=== PATIENT | female | born 2000 | race Caucasian/White ===

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

== ENCOUNTER 2022-01-09 18:57 | Emergency (ER) | payer MEDICAID, SELFPAY ==
[2022-01-09 18:58] VITALS: BP 128/81; PULSE 137; RESP 16; TEMP 36.6; O2SAT 98; BMI 37.4
[2022-01-09] MEDS: Metoclopramide 10 MG/2 ML Vial IV (19:31)
[2022-01-09] MEDS: Ketorolac 30 MG/ML Syringe IV (19:31)
[2022-01-09] MEDS: 0.9% Normal Saline 1,000 ML 999 ML IV (19:31)
[2022-01-09] MEDS: DiphenhydrAMINE 50 MG/ML Syringe 25 MG IV (19:31)
--- NOTE | 2022-01-09 20:16 | EDS_ITS ---
HPI History of Present Illness Chief Complaint: Headache Informant: patient Onset/Context/Timing Onset: Days (2 days) Context: Gradual Timing: Continuous Quality -Headache: Positive for Similar Prior Headaches Current Severity: Moderate Maximum Severity: Moderate Narrative Narrative: Patient present secondary to frontal headache for the past 2 days. She has tried Tylenol ibuprofen without improvement. She does report a history of similar headaches. She denies any recent head trauma. No URI symptoms or fever. [facility] Medical History Anxiety Bipolar affect, depressed Constipation during in third trimester Home Medications Flintstones Multivitamin 2 cap PO/SL DAILY 10/24/21 [History Last Taken 12/04/21] magnesium citrate 30 ml PO DAILY PRN #296 ml 12/02/21 [Rx Last Taken Unknown] docusate sodium [Colace] 100 mg PO BID 12/03/21 [History Last Taken Unknown] ondansetron 4 mg PO Q6H PRN 30 Days #30 tab 12/05/21 [Rx Last Taken Unknown] Allergy/AdvReac Type Severity Reaction Status Date / Time cephalexin monohydrate Allergy Mild Unknown Verified 12/05/21 04:28 [From Keflex] Penicillins Allergy Mild Rash Verified 12/05/21 04:28 escitalopram [From Lexapro] AdvReac Other Verified 12/05/21 04:28 hydrocodone [From Otter] AdvReac Other Verified 12/05/21 04:28 nystatin AdvReac Nausea/Vom/ Verified 12/05/21 04:28 Diarrhea Family History Father Seizures Mother Depression with anxiety Grandmother Hypertension CVA (cerebral vascular accident) Grandfather Diabetes Surgical History History of cholecystectomy History of placement of ear tubes MPFL of right knee s/p right wrist S/P tonsillectomy Social History Smoking Status: Never smoker alcohol intake: never substance use type: does not use caffeine: Yes what type of physical activity do you participate in: none seatbelt use: always ROS ROS ED Constitutional Constitutional ED: Denies chills or fever(s) Eyes Eyes: Denies change in vision ENT ENT ED: Denies sore throat Cardiovascular Cardiovascular: Denies chest pain Respiratory/Chest Respiratory/Chest: Denies cough or dyspnea Gastrointestinal Gastrointestinal: Reports nausea; Denies abdominal pain, diarrhea or vomiting Genitourinary Genitourinary ED: Denies dysuria Musculoskeletal Musculoskeletal: Denies back pain or neck pain Integumentary Denies rash Neurologic Neurologic: Reports headache(s); Denies paresthesias or weakness Allergic/Immunologic Allergic/Immunologic ED: Denies urticaria EXAM Physical Exam Narrative Exam Narrative: Patient lying in darkened room. Const Vital Signs: 01/09/22 18:58 Temperature 97.9 F Temperature Source Temporal Pulse Rate 137 H Respiratory Rate 16 Blood Pressure 128/81 H Blood Pressure Mean 96 Pulse Ox 98 Oxygen Delivery Method Room Air Positive well nourished and well developed General Appearance ED: well developed HEENT Reports normocephalic atraumatic Eyes EOMs intact bilaterally Neck supple and no meningeal signs Resp normal respiratory effort and clear to auscultation bilaterally Cardio regular rate and regular rhythm GI non-tender Auscultation: normoactive bowel sounds Palpation: soft Extremity normal to inspection Neuro oriented x3 Sensorium / Orientation: awake and alert Motor Exam: strength 5/5 throughout Psych mental status grossly normal Skin Lesions: no lesions Rashes: no rashes MDM MDM MDM Narrative Medical decision making narrative: Patient given Toradol, Reglan, Benadryl, IV fluids. Treatment and Re-Evaluation Comments:: On repeat evaluation patient sleeping comfortably. She easily awakens. Headache is significantly improved and will be discharged home with family. Discharge Plan Triage Chief Complaint: Headache ED Provider: Mi Bernard Dx/Rx/DC Orders Clinical Impression: Migraine Instructions: ED, Migraine (Classical) Prescriptions: No Action Flintstones Multivitamin 2 cap PO/SL DAILY RF: 0 magnesium citrate Solution 30 ml PO DAILY PRN (Reason: constipation) Qty: 296 RF: 1 docusate sodium [Colace] 100 mg capsule 100 mg PO BID RF: 0 ondansetron 4 mg tablet,disintegrating 4 mg PO Q6H PRN (Reason: nausea and vomiting) 30 Days Qty: 30 RF: 3 Primary Care Provider: Bernie Wadsworth Referrals: Bernie Wadsworth MD [Primary Care Provider] - As Needed Disposition Disposition: Home, Self Care
== END 2022-01-09 20:28 | disposition home or self-care (01) ==
PROVIDERS: Emergency Provider Emergency Medicine; PCP Pediatrics; Visit Provider Emergency Medicine
DX: G43.909 Migraine, unspecified, not intractable, without status migrainosus (principal); F31.9 Bipolar disorder, unspecified; F41.9 Anxiety disorder, unspecified
CPT/HCPCS: 99282; J7030; A4216

== ENCOUNTER 2022-04-13 23:58 | Emergency (ER) | payer MEDICAID, SELFPAY ==
[2022-04-13 23:59] VITALS: BP 130/78; PULSE 134; RESP 15; TEMP 37.2; O2SAT 97; BMI 37.4
--- NOTE | 2022-04-14 00:20 | EDS_ITS ---
HPI History of Present Illness Chief Complaint: General Illness Informant: patient Onset/Context/Timing Onset: Hours (4) Context: Gradual Timing: Continuous Quality -Headache: Positive for Similar Prior Headaches and Throbbing Location: left frontal/retroorbital Current Severity: Severe Maximum Severity: Severe Worsened by: light Relieved by: nothing; vomited up tylenol/ibuprofen Associated Symptoms/Injury Associated Symptoms: Positive for Nausea, Vomiting and Photophobia; Negative for Fever, Blurred Vision and Visual Loss Injury - ROB: Negative for Direct Trauma, Fall and Assault Narrative Narrative: Patient started having a migraine several hours ago followed by vomiting unable to keep medications down. She states nothing about this is different from her migraines which come randomly without obvious triggers as it did today. She was feeling fine before this. [facility] Medical History Anxiety Bipolar affect, depressed Constipation during in third trimester Allergy/AdvReac Type Severity Reaction Status Date / Time cephalexin monohydrate Allergy Mild Unknown Verified 04/14/22 00:04 [From Keflex] Penicillins Allergy Mild Rash Verified 04/14/22 00:04 escitalopram [From Lexapro] AdvReac Other Verified 04/14/22 00:04 hydrocodone [From [place]] AdvReac Other Verified 04/14/22 00:04 nystatin AdvReac Nausea/Vom/ Verified 04/14/22 00:04 Diarrhea Family History Father Seizures Mother Depression with anxiety Grandmother Hypertension CVA (cerebral vascular accident) Grandfather Diabetes Surgical History History of cholecystectomy History of placement of ear tubes MPFL of right knee s/p right wrist S/P tonsillectomy Social History Smoking Status: Never smoker alcohol intake: never substance use type: does not use caffeine: Yes what type of physical activity do you participate in: none seatbelt use: always ROS ROS ED Constitutional Constitutional ED: Denies chills or fever(s) Eyes Eyes: Reports blurry vision; Denies diplopia ENT ENT ED: Denies ear pain or sore throat Cardiovascular Cardiovascular: Denies chest pain or palpitations Respiratory/Chest Respiratory/Chest: Denies cough or dyspnea Gastrointestinal Gastrointestinal: Reports nausea and vomiting; Denies abdominal pain or diarrhea Genitourinary Genitourinary ED: Denies dysuria or urinary frequency Musculoskeletal Musculoskeletal: Denies back pain or myalgias Integumentary Denies abscess or rash Neurologic Neurologic: Reports headache(s); Denies paresthesias or weakness EXAM Physical Exam Const Vital Signs: 04/13/22 23:59 04/14/22 00:07 Temperature 98.9 F Temperature Source Oral Pulse Rate 134 H Respiratory Rate 15 Respiratory Effort Normal Blood Pressure 130/78 H Blood Pressure Mean 95 Pulse Ox 97 Oxygen Delivery Method Room Air HEENT Reports normocephalic and moist mucous membranes atraumatic Eyes PERRL, EOMs intact bilaterally and conjunctivae normal Eyes Narrative: photophobia Neck no lymphadenopathy, supple and no meningeal signs Resp normal respiratory effort and clear to auscultation bilaterally GI non-tender and non-distended Palpation: soft Extremity normal to inspection and full ROM Neuro oriented x3 and CN's II-XII intact bilaterally Sensorium / Orientation: awake and alert Speech: speech normal Gait (Neuro): normal gait Motor Exam: strength 5/5 throughout Psych mental status grossly normal Skin Lesions: no lesions Rashes: no rashes MDM MDM MDM Narrative Medical decision making narrative: Patient was concerned she might be , so we did a test. It is negative. She was given IV fluids, Toradol, Reglan and on reevaluation she is sleepy, she has friend to take her home, she states her migraine is gone and her nausea is gone and she feels much better. Lab Data Attestation: I reviewed the patient's lab results. Labs: Laboratory Results - last 24 hr 04/14/22 00:31 Urine Test Negative Discharge Plan Triage Chief Complaint: General Illness ED Provider: Preston Jeff Dx/Rx/DC Orders Clinical Impression: Migraine headache, examination or test, negative result Instructions: ED, Migraine (Classical) Primary Care Provider: Care Physician,No Primary Referrals: Doctor,Your [STAFF PHYSICIAN] - 3-5 Days if not improving Disposition Disposition: Home, Self Care
[2022-04-14] MEDS: 0.9% Normal Saline 1,000 ML 999 ML IV (00:42)
[2022-04-14] MEDS: Metoclopramide 10 MG/2 ML Vial IV (00:42)
[2022-04-14] MEDS: Ketorolac 15 MG/ML Vial IV (00:42)
[2022-04-14 01:07] LABS: Internal QC Validated? YES +Cl - CLEAR BKGD
[2022-04-14 01:08] LABS: Pregnancy, Urine Negative Negative
[2022-04-14 01:31] VITALS: RESP 18
== END 2022-04-14 01:33 | disposition home or self-care (01) ==
PROVIDERS: Emergency Provider Emergency Medicine; Visit Provider Emergency Medicine
DX: G43.909 Migraine, unspecified, not intractable, without status migrainosus (principal)
CPT/HCPCS: 81025; 96361; 96374; 96375; 99282; J7030; A4216

== ENCOUNTER 2022-04-25 15:23 | Outpatient (RCR) | payer MEDICAID, SELFPAY ==
--- NOTE | 2022-04-25 16:13 | HP.PTEVAL ---
Patient's Visit Information KIRAN GONZALES is a 21 year old F referred to Physical Therapy by DIAMOND Sheridan with a diagnosis of Right Patellofemoral Syndrome with lateral tilt/sublux- Previous MPFL recon. Date of Evaluation: 04/25/22 Physical Therapist: Ghada Lester DPT - Visit Plan Frequency: 2x /Week Duration: 4 Weeks Plan: Focus on LE and core strength/stabilization. *Caution dislocation of patella. HEP Given IE: bolster extn, quad set, SLR - Subjective Patient reports that she had MTFL surgery in the 9th grade and its never been right. She can move her knee cap and it pops out (2-3x a week). This happens quite often- stairs up to her apt- if she doesn't sit after she does them it pops out. It grinds and pops a lot as well. When it pops out she can put it back in herself- she bends her knee into valgus and pushes it back in. The last time it popped out was yesterday. She went to see the DIAMOND Ibrahim- if PT doesn't work she will have to have another surgery. 6-9 months of recovery. It is very painful when it pops out. Worst: 10/10 when it pops out most of the time its a 6-7/10. Agg: walking or standing for a long period of time. Eases: prop up and ice pack. Best: 5/10. The pain is located under the patella, medial/lateral joint line and posterior knee. Does radiate to the ankle. When it pops out her whole leg swells and its hard to put her shoes on. She has had x-rays but no MRI at this time. She has N/T in the toes but only when it pops. 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 She has a knee brace J-brace that really helps that she plans to wear at work. 2 years and 4 months old- she has two boys- her mother has custody until she can get her knee under control. Sleep: keeps her from sleeping if its painful- she sleeps with a wedge pillow that she always has her leg up on. PMHx: 5 surgeries (knee, wrist, gallbladder, tonsils and ears). Meds: none - Objective Posture: FH, RS- can correct but does not maintain. Gait: antalgic- decreased stance on the right LE with poor heel/toe. Stairs: not assessed due to pt reports of dislocation- will attempt once strength is improved SLS: 5-10 sec then LOB mild hip drop- VALGUS bilateral right>left. HR/TR: able without pain. Palpation: tender along lateral joint line and posterior lateral joint. ROM: 10-130 degrees- pain at end range flexion and extension. Strength: Core: fair plus Hip: 4/5 Knee: 4/5 Ankle: 5/5. Flex: HS: mild Gastroc: moderate, Solues: moderate, Quad:mild. Patellar mobility: increased with lateral tilt - Special Tests R Knee Valgus - MCL: Positive R Knee Varus - LCL: Positive R Knee Patellar Apprehension - PFS: Positive R Knee Patellar Grind - PFS: Positive - Balance/Special Test Scores Lower Extremity Functional Score: 31 - Goals Goal 1:: Patient will be I with HEP and progression Goal Time Frame: 4-6 Weeks Goal 2:: Patient will ambulate >300 feet with a normalized gait pattern Goal Time Frame: 4-6 Weeks Goal 3:: Patient will SLS for 30 sec without LOB Goal Time Frame: 4-6 Weeks Goal 4:: Patient will demo normal tracking of the patella Goal Time Frame: 4-6 Weeks Goal 5:: Patient will report no dislocation for 1 week Goal Time Frame: 4-6 Weeks - Rehabilitation Potential Physical Therapy Diagnosis: Patient presents with hypermobility-she has decreased pain free ROM, LE and core strength/stabilization, flex and muscular endurance leading to increased pain with ADL's Rehabilitation Potential: Fair - Anticipated Interventions Patient/Client Instruction: Educate patient on: Benefits of Fitness Program Therapeutic Exercise to Include: Strength training, Endurance training, Agility training, Body mechanics, Postural training, Flexibilty training, Gait and locomotor training, Neuromotor development, Dynamic Lumbar Stabilization, Scapular Strength/Stabilization For the Purpose of:: To improve muscle performance and motor function TENS: Yes Cryotherapy (ice pack, ice massage): Yes Thermo therapy (hot pack): Yes Thank you for the opportunity to evaluate your patient. For Medicare and Medicare HMO plans, please review the plan of care and approve it. It will need to be FAXED BACK to us at [phone] for Medicare purposes. For Medicare only, by signing this I certify the plan of care. Please let me know if there are questions or concerns regarding this plan of care. Physician Signature: Date:
--- NOTE | 2022-05-23 14:42 | HP.PT.NRP ---
KIRAN GONZALES was seen in my office for initial evaluation on 04/25/22. The following Plan of Care was established for this patient: Initial Frequency: 2x /Week Initial Duration: 4 Weeks Patient/Client Instruction: Educate patient on: Benefits of Fitness Program Therapeutic Exercise to Include: Strength training, Endurance training, Agility training, Body mechanics, Postural training, Flexibilty training, Gait and locomotor training, Neuromotor development, Dynamic Lumbar Stabilization, Scapular Strength/Stabilization For the Purpose of:: To improve muscle performance and motor function TENS: Yes Cryotherapy (ice pack, ice massage): Yes Thermo therapy (hot pack): Yes This patient was last seen in our office . Pertinent comments regarding their Physical therapy will appear below: Patient has not attended PT consistently and has no showed for more than 3 visits. D/C and return to MD for further evaluation as needed. At this point I will be discontinuing this patient from physical therapy. I would be happy to see this patient again in the future if found appropriate by the physician. Thank you! NIKITA KingT Balance/Gait/Functional tests - Balance/Special Test Scores Lower Extremity Functional Score: 31
== END 2022-04-25 19:00 | disposition home or self-care (01) ==
LOC: PT 15:23
PROVIDERS: Referring Provider Physician Assistant; Visit Provider Physician Assistant
DX: M22.2X1 Patellofemoral disorders, right knee; S83.011D Lateral subluxation of right patella, subsequent encounter; X58.XXXD Exposure to other specified factors, subsequent encounter
CPT/HCPCS: 97110; 97161

== ENCOUNTER 2023-06-09 22:59 | Emergency (ER) | payer MEDICAID, SELFPAY ==
[2023-06-09 23:01] VITALS: BP 116/63; PULSE 110; RESP 18; TEMP 36.6; O2SAT 100
[2023-06-10 00:13] VITALS: PULSE 92; RESP 18; O2SAT 100
[2023-06-10 00:15] VITALS: BMI 38.1
[2023-06-10 00:34] LABS: Absolute Lymphocyte Count 1.97 X10^3/uL (0.83-4.51); Anion Gap 7 (5-15); BUN 11 mg/dL (7-18); BUN/Creat Ratio 13.4 RATIO (10-20); Basophil# 0.04 X10^3/uL; Basophil% 0.4 % (0-1); Calcium,Total 8.5 mg/dL (8.5-10.1); Chloride 104 mmol/L (98-107); Creatinine, Serum 0.82 mg/dL (0.55-1.02); EST Glomerular Filtration Rate 94 mL/min (>60); Eosinophil# 0.12 X10^3/uL; Eosinophils% 1.1 % (0-5); Est Glom Filt Rate - Afr Amer 114 mL/min (>60); Estimated Creatinine Clearance 106.42 ml/min; Glucose 116 mg/dL (74-106); Hematocrit 32.7 % (37-47); Lymphocyte # 1.97 X10^3/ul (0.83-4.51); Lymphocyte % 18.1 % (19-41); Mean Corp Hgb Conc 30.6 g/dL (32-36); Mean Corpuscular Hgb 23.3 pg (27.0-32.0); Mean Corpuscular Volume 76.2 fL (81-99); Monocyte# 0.64 X10^3/uL; Monocyte% 5.9 % (0-10); NRBC Flagged by Analyzer 0 % (0-5); Neutrophil # 8.04 X10^3/uL (2.7-7.7); Platelet Count 291 K/mm3 (150-450); Potassium 3.6 mmol/L (3.5-5.1); RBC Distribution Width CV 14.5 % (11.6-14.6); RBC Distribution Width SD 40.5 fl (35.1-43.9); Red Blood Count 4.29 M/mm3 (4.2-5.4); Sodium Level 135 mmol/L (136-145); White Blood Count 10.9 K/mm3 (4.4-11.0)
--- NOTE | 2023-06-10 00:58 | EKG12_ITS ---
Test Reason : DYSRHYTHMIA Blood Pressure : / mmHG Vent. Rate : 098 BPM Atrial Rate : 098 BPM P-R Int : 130 ms QRS Dur : 080 ms QT Int : 376 ms P-R-T Axes : 005 066 036 degrees QTc Int : 480 ms Normal sinus rhythm Prolonged QT Abnormal ECG Confirmed by KATHY JOE, MIGUEL ([id number]), electronic news gathering editor DONY SOLANO ([id number]) on 06/13/2023 8:46:21 AM Referred By: NORTH Confirmed By:DEBRA CHAVEZ MD
[2023-06-10 01:07] VITALS: BP 121/71; PULSE 89; RESP 16; O2SAT 100
[2023-06-10] MEDS: 0.9% Normal Saline 1,000 ML 999 ML IV ×2 (01:15)
[2023-06-10 01:27] LABS: Acetaminophen (Tylenol) Level < 2.0 ug/mL (10.0-30.0); Alcohol, Blood (Medical)-Serum < 3.0 mg/dL; Salicylate < 1.7 mg/dL (2.8-20.0)
[2023-06-10 01:42] LABS: Amphetamine Urine VISTA NEGATIVE (<1000 ng/mL); Barbiturate Urine VISTA NEGATIVE (< 200 ng/mL); Benzodiazepine Urine VISTA NEGATIVE (< 200 ng/mL); Cocaine Urine VISTA NEGATIVE (< 300 ng/mL); Ecstacy Urine VISTA NEGATIVE (< 500 ng/mL); Methadone Urine VISTA NEGATIVE (< 300 ng/mL); PCP Urine VISTA NEGATIVE (< 25 ng/mL); THC Urine VISTA POSITIVE (< 50 ng/mL); Vista UDS pH Range 6
[2023-06-10 03:11] VITALS: PULSE 76; RESP 20; O2SAT 100
[2023-06-10 05:00] VITALS: PULSE 83; RESP 16; O2SAT 100
--- NOTE | 2023-06-10 05:49 | EX.ED.DYSGE1 ---
HPI History of Present Illness Chief Complaint: Substance Abuse Informant: spouse/S.O. Narrative Narrative: Patient is a 22-year-old female with past medical history of bipolar disorder as well as ovarian cyst. She reportedly is 5 weeks . According to her significant other the patient was at a republic[employer] and ate 7 or 8 cookies and after doing this began to feel weak and tired. He states he was called by her by approximately 10 PM and when he went to her she was fatigued and slurring her speech and had possible overdose changes and with this is brought to the hospital for evaluation [facility] Medical History Anxiety Bipolar affect, depressed Constipation during in third trimester Home Medications NK 04/18/22 [History Last Taken Unknown] Allergy/AdvReac Type Severity Reaction Status Date / Time cephalexin monohydrate Allergy Mild Unknown Verified 06/09/23 23:04 [From Keflex] Penicillins Allergy Mild Rash Verified 06/09/23 23:04 escitalopram [From Lexapro] AdvReac Other Verified 06/09/23 23:04 hydrocodone [From [place]] AdvReac Other Verified 06/09/23 23:04 nystatin AdvReac Nausea/Vom/ Verified 06/09/23 23:04 Diarrhea Family History Father Seizures Mother Depression with anxiety Grandmother Hypertension CVA (cerebral vascular accident) Grandfather Diabetes Surgical History History of cholecystectomy History of placement of ear tubes MPFL of right knee s/p right wrist S/P tonsillectomy Social History Smoking Status: Never smoker alcohol intake: never substance use type: does not use caffeine: Yes what type of physical activity do you participate in: none seatbelt use: always ROS ROS ED Constitutional Constitutional ED: Denies chills or fever(s) Eyes Eyes: Denies change in vision ENT ENT ED: Denies sore throat Cardiovascular Cardiovascular: Denies chest pain Respiratory/Chest Respiratory/Chest: Denies cough or dyspnea Gastrointestinal Gastrointestinal: Reports nausea; Denies abdominal pain, diarrhea or vomiting Genitourinary Genitourinary ED: Denies dysuria Musculoskeletal Musculoskeletal: Denies myalgias Integumentary Denies rash Neurologic Neurologic: Reports weakness; Denies headache(s) Psychiatric Psychiatric: Denies suicidal ideation or suicidal thoughts Hematologic/Lymphatic Hematologic/Lymphatic: Denies easy bleeding or easy bruising EXAM Physical Exam Const Vital Signs: 06/09/23 23:01 06/10/23 00:13 06/10/23 01:07 Temperature 97.9 F Temperature Source Temporal Pulse Rate 110 H 92 89 Respiratory Rate 18 18 16 Respiratory Effort Respiratory Pattern Blood Pressure 116/63 121/71 H Blood Pressure Mean 80 87 Pulse Ox 100 100 100 Oxygen Delivery Method Room Air Room Air Room Air 06/10/23 01:08 06/10/23 03:11 Temperature Temperature Source Pulse Rate 76 Respiratory Rate 20 H Respiratory Effort Normal Non-Labored Respiratory Pattern Normal Blood Pressure Blood Pressure Mean Pulse Ox 100 Oxygen Delivery Method Room Air Positive well nourished, well developed and obese General Appearance ED: well developed Nutritional Appearance: obese HEENT HEENT Narrative: No signs of infection noted in the posterior pharynx Eyes Eyes Narrative: Pupils are dilated and sluggish to respond to light with mild scleral injection Neck supple Neck Narrative: No nuchal rigidity or meningeal signs Chest Wall palpation of chest normal Resp normal respiratory effort and clear to auscultation bilaterally Resp Narrative: No signs of respiratory distress Cardio regular rhythm Rate: tachycardic GI normal to inspection, nondistended, normoactive bowel sounds, non-tender, non-distended and no masses Auscultation: normoactive bowel sounds Palpation: soft Extremity normal to inspection Neuro CN's II-XII intact bilaterally Neuro Narrative: Patient is obtunded with GCS of 13. She will wake with mild stimulation but then quickly fall back asleep. No focal neurologic deficit noted. There is horizontal nystagmus present Psych Psych Narrative: Patient has a depressed/flat affect Skin no rashes or lesions noted MDM MDM MDM Narrative Medical decision making narrative: Patient presented to the ER mildly tachycardic but otherwise with stable vitals. Significantly reported she had eaten 7 or 8 cookies prior to symptoms starting and there is concern for an accidental marijuana overdose based on this coupled with her nystagmus tachycardia and dilated pupils. She is protecting her airway and therefore there is no need for emergent intubation. With concern patient could have polysubstance abuse/overdose basic labs were obtained. Labs were only significant for marijuana. With time and IV hydration the patient's heart rate resolved and her mental status improved as well. She would now awake with mild stimulation and could tell me her name and where she is at and who she is with. Therefore at this time with improvement of symptoms in the ER no need for securing her airway and no signs of neurologic deficit she is otherwise safe for discharge. As she denies that there is any malicious intent behind her eating his cookies there is no need for psychiatric evaluation History & Record Review Discussion w/independent historian: Significant other Lab Data Attestation: I reviewed the patient's lab results. Labs: Laboratory Results - last 24 hr 06/10/23 06/10/23 00:01 01:10 WBC 10.9 RBC 4.29 Hgb 10.0 L Hct 32.7 L MCV 76.2 L MCH 23.3 L MCHC 30.6 L RDW Std Deviation 40.5 RDW Coeff of Robert 14.5 Plt Count 291 MPV 11.0 Immature Gran % (Auto) 0.500 Neut % (Auto) 74.0 H Lymph % (Auto) 18.1 L [place] % (Auto) 5.9 Eos % (Auto) 1.1 Baso % (Auto) 0.4 Absolute Neuts (auto) 8.0 H Absolute Lymphs (auto) 1.97 Nucleated RBC % 0 Sodium 135 L Potassium 3.6 Chloride 104 Carbon Dioxide 24.0 Anion Gap 7 BUN 11 Creatinine 0.82 Estim Creat Clear Calc 106.42 Est GFR (MDRD) Af Amer 114 Est GFR (MDRD) Non-Af 94 BUN/Creatinine Ratio 13.4 Glucose 116 H Calcium 8.5 Salicylates < 1.7 L Urine Opiates Screen NEGATIVE Urine Methadone Screen NEGATIVE Acetaminophen < 2.0 L Ur Barbiturates Screen NEGATIVE Ur Phencyclidine Scrn NEGATIVE Ur Amphetamines Screen NEGATIVE MDMA (Ecstasy) Screen NEGATIVE U Benzodiazepines Scrn NEGATIVE Urine Cocaine Screen NEGATIVE U Cannabinoids Screen POSITIVE H Ur Drug Screen Comment Ethyl Alcohol < 3.0 Discharge Plan Triage Chief Complaint: Substance Abuse ED Provider: Jorge Noland Dx/Rx/DC Orders Clinical Impression: Accidental marijuana overdose, Bipolar affect, depressed Instructions: Cannabis Use in Prescriptions: No Action NK Primary Care Provider: Care Physician,No Primary Referrals: Topher John MD [Med Staff - Active Staff] - Care Physician,No Primary [Primary Care Provider] - Activity Restrictions/Additional Instructions: Your work-up today indicated you had an accidental marijuana overdose. The drug is metabolizing out of your system. Keep yourself well-hydrated and allow another 6 to 12 hours for metabolization to complete. If you have any further concerns please return the hospital for repeat evaluation Disposition Disposition: Home, Self Care
[2023-06-10 05:59] VITALS: BP 116/67; PULSE 81; RESP 18; O2SAT 100
== END 2023-06-10 06:01 | disposition home or self-care (01) ==
PROVIDERS: Emergency Provider Emergency Medicine; Visit Provider Emergency Medicine
DX: O9A.211 Injury, poisoning and certain other consequences of external causes complicating pregnancy, first trimester (principal); O99.341 Other mental disorders complicating pregnancy, first trimester; F32.A Depression, unspecified; Z3A.01 Less than 8 weeks gestation of pregnancy; Z90.49 Acquired absence of other specified parts of digestive tract; T40.711A Poisoning by cannabis, accidental (unintentional), initial encounter
CPT/HCPCS: 80048; 80307; 80329; 82077; 85025; 93005; 99283; J7030; A4216; G0480

== ENCOUNTER 2023-12-01 13:18 | Emergency (ER) | payer MEDICAID, SELFPAY ==
[2023-12-01 13:18] VITALS: BP 108/71; PULSE 117; RESP 16; TEMP 35.6; O2SAT 100; BMI 37.9
--- NOTE | 2023-12-01 13:53 | EX.ED.DYSGE1 ---
HPI <DIAMOND Moeller - Last Filed: 12/01/23 16:28> History of Present Illness Chief Complaint: Nausea/Vomiting/Diarrhea Narrative Narrative: Patient presenting today due to nausea, vomiting, and diarrhea that started this afternoon. Her is here with similar symptoms. She reports that last night they ate shredded chicken that seem to upset her stomach's. Today, they went to [facility] and shortly after eating lunch their symptoms started. She has had 2 episodes of vomiting and 3 episodes of loose stool. She denies fever, chills, abdominal pain, hematemesis, melena, hematochezia. She reports that she is 30 weeks , she is G5, P2. PFSH <DIAMOND Moeller - Last Filed: 12/01/23 16:28> [facility] Medical History Anxiety Bipolar affect, depressed Constipation during in third trimester Home Medications ondansetron 4 mg disintegrating tablet 4 mg PO Q8H PRN PRN Nausea #10 tabs 12/01/23 [Rx Last Taken Unknown] Allergy/AdvReac Type Severity Reaction Status Date / Time cephalexin monohydrate Allergy Mild Unknown Verified 12/10/23 21:35 [From Keflex] Penicillins Allergy Mild Rash Verified 12/10/23 21:35 escitalopram [From Lexapro] AdvReac Other Verified 12/10/23 21:35 hydrocodone [From [place]] AdvReac Other Verified 12/10/23 21:35 nystatin AdvReac Nausea/Vom/ Verified 12/10/23 21:35 Diarrhea Family History Father Seizures Mother Depression with anxiety Grandmother Hypertension CVA (cerebral vascular accident) Grandfather Diabetes Surgical History History of cholecystectomy History of placement of ear tubes MPFL of right knee s/p right wrist S/P tonsillectomy Social History Smoking Status: Current some day smoker tobacco type: e-cigarettes alcohol intake: never substance use type: does not use caffeine: Yes what type of physical activity do you participate in: none seatbelt use: always ROS <DIAMOND Moeller - Last Filed: 12/01/23 16:28> ROS ED Constitutional Constitutional ED: Denies chills or fever(s) Cardiovascular Cardiovascular: Denies chest pain Respiratory/Chest Respiratory/Chest: Denies cough or dyspnea Gastrointestinal Gastrointestinal: Reports diarrhea, nausea and vomiting; Denies abdominal pain or constipation Genitourinary Genitourinary ED: Denies dysuria, hematuria or urinary frequency Musculoskeletal Musculoskeletal: Denies arthralgias or myalgias Integumentary Denies rash Neurologic Neurologic: Denies weakness EXAM <DIAMOND Moeller - Last Filed: 12/01/23 16:28> Physical Exam Const Vital Signs: 12/01/23 13:18 12/01/23 15:43 Temperature 96.1 F L Temperature Source Temporal Pulse Rate 117 H 70 Respiratory Rate 16 16 Blood Pressure 108/71 Blood Pressure Mean 83 Pulse Ox 100 Oxygen Delivery Method Room Air Positive well nourished, well developed and no apparent distress General Appearance ED: well developed HEENT Reports normocephalic and head/scalp atraumatic Mouth ED: Yes moist mucous membranes normal Eyes PERRL and EOMs intact bilaterally Neck full ROM and supple Chest Wall inspection of chest normal Resp normal respiratory effort and clear to auscultation bilaterally Cardio regular rate and regular rhythm GI soft to palpation, non-tender, non-distended and no masses Back/Spine normal ROM and normal to inspection Extremity normal to inspection and full ROM Neuro oriented x3, CN's II-XII intact bilaterally, moves all extremities, no focal motor deficits and no sensory deficits noted Sensorium / Orientation: awake and alert Psych mental status grossly normal and thought process normal Skin no rashes or lesions noted and no wounds <Dr. Preston Jeff MD - Last Filed: 12/03/23 17:15> Physical Exam Const Vital Signs: 12/01/23 13:18 12/01/23 15:43 Temperature 96.1 F L Temperature Source Temporal Pulse Rate 117 H 70 Respiratory Rate 16 16 Blood Pressure 108/71 Blood Pressure Mean 83 Pulse Ox 100 Oxygen Delivery Method Room Air <Dr. Yenny Jasmine DO - Last Filed: 12/13/23 10:56> Physical Exam Const Vital Signs: 12/01/23 13:18 12/01/23 15:43 Temperature 96.1 F L Temperature Source Temporal Pulse Rate 117 H 70 Respiratory Rate 16 16 Blood Pressure 108/71 Blood Pressure Mean 83 Pulse Ox 100 Oxygen Delivery Method Room Air [facility] <DIAMOND Moeller - Last Filed: 12/01/23 16:28> [facility] Narrative Medical decision making narrative: Patient presenting due to nausea, vomiting, diarrhea that started this afternoon. Her is being seen for similar symptoms. She is well-appearing and in no acute distress. She is slightly tachycardic. Labs and heart tones will be obtained. She will be given IV fluids and Zofran. heart tones are WNL. Slightly hypokalemic, potassium replacement given. UA does suggest UTI, culture will be obtained. Patient does take Macrobid twice daily at baseline to prevent UTIs. She has an allergy to Keflex. We will hold off on changing antimicrobial therapy for now. On reexamination she is tolerating p.o. fluids and reports improvement of her symptoms. She has not had any vomiting or diarrhea here. We did offer to obtain a stool culture but she was unable to provide a sample. Given her is here with similar symptoms, I suspect that this is likely a viral gastroenteritis or possibly food poisoning. She is to follow-up with her OB and has been given return instructions. She will be discharged home in stable condition and is comfortable with plan. Lab Data Attestation: I reviewed the patient's lab results. Lab results narrative: H&H 9.1 and 29.6, this is consistent with previous labs. Potassium 3.1. Labs: Laboratory Results - last 24 hr 12/01/23 14:00 WBC 8.9 RBC 3.75 L Hgb 9.1 L Hct 29.6 L MCV 78.9 L MCH 24.3 L MCHC 30.7 L RDW Std Deviation 48.7 H RDW Coeff of Robert 17.3 H Plt Count 280 MPV 11.1 Immature Gran % (Auto) 0.900 Neut % (Auto) 72.3 H Lymph % (Auto) 19.7 [place]ann[place] % (Auto) 6.2 Eos % (Auto) 0.6 Baso % (Auto) 0.3 Absolute Neuts (auto) 6.4 Absolute Lymphs (auto) 1.75 Nucleated RBC % 0 Sodium 137 Potassium 3.1 L Chloride 106 Carbon Dioxide 24.0 Anion Gap 7 BUN 4 L Creatinine 0.56 Estim Creat Clear Calc 202.87 Est GFR (MDRD) Af Amer 177 Est GFR (MDRD) Non-Af 146 BUN/Creatinine Ratio 7.2 L Glucose 101 Calcium 9.0 Total Bilirubin 0.30 Direct Bilirubin < 0.05 AST 7 L ALT 10 L Alkaline Phosphatase 92 Total Protein 6.3 L Albumin 2.4 L Globulin 3.9 Lipase 20 Urine Color Yellow Urine Clarity Clear Urine pH 7.0 Ur Specific [place] 1.010 Urine Protein 30 H Urine Glucose (UA) Normal Urine Ketones Negative Urine Occult Blood 10 H Urine Nitrite Positive H Urine Bilirubin Negative Urine Urobilinogen 4 H Ur Leukocyte Esterase 500 H Urine RBC 0 SEEN Urine WBC 0-5 SEEN Ur Squamous Epith Cells 0-5 SEEN Urine Bacteria 3+ Urine Mucus 0 SEEN <Dr. Preston Jeff MD - Last Filed: 12/03/23 17:15> [facility] Lab Data Labs: Laboratory Results - last 24 hr 12/01/23 14:00 WBC 8.9 RBC 3.75 L Hgb 9.1 L Hct 29.6 L MCV 78.9 L MCH 24.3 L MCHC 30.7 L RDW Std Deviation 48.7 H RDW Coeff of Robert 17.3 H Plt Count 280 MPV 11.1 Immature Gran % (Auto) 0.900 Neut % (Auto) 72.3 H Lymph % (Auto) 19.7 [place] % (Auto) 6.2 Eos % (Auto) 0.6 Baso % (Auto) 0.3 Absolute Neuts (auto) 6.4 Absolute Lymphs (auto) 1.75 Nucleated RBC % 0 Sodium 137 Potassium 3.1 L Chloride 106 Carbon Dioxide 24.0 Anion Gap 7 BUN 4 L Creatinine 0.56 Estim Creat Clear Calc 202.87 Est GFR (MDRD) Af Amer 177 Est GFR (MDRD) Non-Af 146 BUN/Creatinine Ratio 7.2 L Glucose 101 Calcium 9.0 Total Bilirubin 0.30 Direct Bilirubin < 0.05 AST 7 L ALT 10 L Alkaline Phosphatase 92 Total Protein 6.3 L Albumin 2.4 L Globulin 3.9 Lipase 20 Urine Color Yellow Urine Clarity Clear Urine pH 7.0 Ur Specific [place] 1.010 Urine Protein 30 H Urine Glucose (UA) Normal Urine Ketones Negative Urine Occult Blood 10 H Urine Nitrite Positive H Urine Bilirubin Negative Urine Urobilinogen 4 H Ur Leukocyte Esterase 500 H Urine RBC 0 SEEN Urine WBC 0-5 SEEN Ur Squamous Epith Cells 0-5 SEEN Urine Bacteria 3+ Urine Mucus 0 SEEN Treatment and Re-Evaluation Comments:: Randee: Culture results brought to my attention, showing E. coli greater than 100,000 CFU per mL. It is sensitive to cephalosporins however she has a declared allergy to cephalexin. She is already on twice daily Macrobid as a preventative when this specimen was provided. She is , so fluoroquinolones are not the best option. In similar predicament, Bactrim is showing resistance. I called the patient to discuss with her, my recommendation would be to repeat urine culture when her diarrhea is resolved, as I suspect this is all due to contamination from her diarrhea that she presented to the emergency department for. 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 <Dr. Yenny Jasmine, DO - Last Filed: 12/13/23 10:56> [facility] Narrative Medical decision making narrative: Patient presenting due to nausea, vomiting, diarrhea that started this afternoon. Her is being seen for similar symptoms. She is well-appearing and in no acute distress. She is slightly tachycardic. Labs and heart tones will be obtained. She will be given IV fluids and Zofran. heart tones are WNL. Slightly hypokalemic, potassium replacement given. UA does suggest UTI, culture will be obtained. Patient does take Macrobid twice daily at baseline to prevent UTIs. She has an allergy to Keflex. We will hold off on changing antimicrobial therapy for now. On reexamination she is tolerating p.o. fluids and reports improvement of her symptoms. She has not had any vomiting or diarrhea here. We did offer to obtain a stool culture but she was unable to provide a sample. Given her is here with similar symptoms, I suspect that this is likely a viral gastroenteritis or possibly food poisoning. She is to follow-up with her OB and has been given return instructions. She will be discharged home in stable condition and is comfortable with plan. I have personally performed a face to face assessment of the patient and have reviewed the RAUDEL Note. I performed a substantive portion of the visit including all aspects of the following. My machuca findings include: History is patient is a 23-year-old female currently 30 weeks presenting with nausea, vomiting and diarrhea that started this afternoon. Patient is presenting with her who was similar GI complaints. I stated ate chicken yesterday and started upset their stomach and then ate pizza today the symptoms worsen. Patient is nontoxic-appearing but vital signs are significant for tachycardia. Patient is given IV fluids and Zofran in the emergency room. heart tones are within normal limits. She is found to be mildly hypokalemic and given potassium placement emergency room. Abdomen is soft and nontender and I do not think requires further imaging. Not having any contractions, leakage of fluid or vaginal bleeding I do not think she needs transfer to OB triage. I does not have any diarrhea in the emergency room. Urinalysis is questionably consistent with UTI however patient is already on daily Macrobid to prevent UTIs. If she is not having any urinary symptoms we will wait for culture to treat. Patient able to tolerate p.o. in the ER and be discharged home. Counseled on return precautions. Patient verbalized agreement of transplant. Discharged home in stable condition. Other additions or changes: [None] Lab Data Labs: Laboratory Results - last 24 hr 12/01/23 14:00 WBC 8.9 RBC 3.75 L Hgb 9.1 L Hct 29.6 L MCV 78.9 L MCH 24.3 L MCHC 30.7 L RDW Std Deviation 48.7 H RDW Coeff of Robert 17.3 H Plt Count 280 MPV 11.1 Immature Gran % (Auto) 0.900 Neut % (Auto) 72.3 H Lymph % (Auto) 19.7 Fannin % (Auto) 6.2 Eos % (Auto) 0.6 Baso % (Auto) 0.3 Absolute Neuts (auto) 6.4 Absolute Lymphs (auto) 1.75 Nucleated RBC % 0 Sodium 137 Potassium 3.1 L Chloride 106 Carbon Dioxide 24.0 Anion Gap 7 BUN 4 L Creatinine 0.56 Estim Creat Clear Calc 202.87 Est GFR (MDRD) Af Amer 177 Est GFR (MDRD) Non-Af 146 BUN/Creatinine Ratio 7.2 L Glucose 101 Calcium 9.0 Total Bilirubin 0.30 Direct Bilirubin < 0.05 AST 7 L ALT 10 L Alkaline Phosphatase 92 Total Protein 6.3 L Albumin 2.4 L Globulin 3.9 Lipase 20 Urine Color Yellow Urine Clarity Clear Urine pH 7.0 Ur Specific [place] 1.010 Urine Protein 30 H Urine Glucose (UA) Normal Urine Ketones Negative Urine Occult Blood 10 H Urine Nitrite Positive H Urine Bilirubin Negative Urine Urobilinogen 4 H Ur Leukocyte Esterase 500 H Urine RBC 0 SEEN Urine WBC 0-5 SEEN Ur Squamous Epith Cells 0-5 SEEN Urine Bacteria 3+ Urine Mucus 0 SEEN Discharge Plan Triage Chief Complaint: Nausea/Vomiting/Diarrhea ED Midlevel Provider: Ana Munguia ED Provider: Yenny Jasmine Dx/Rx/DC Orders Clinical Impression: UTI (urinary tract infection), Diarrhea, , Nausea & vomiting Instructions: ED Diet Vomiting Diarrhea Prescriptions: New ondansetron 4 mg tablet,disintegrating 4 mg PO Q8H PRN PRN (Reason: Nausea) Qty: 10 0RF Primary Care Provider: Care Physician,No Primary Referrals: Care Physician,No Primary [Primary Care Provider] - Activity Restrictions/Additional Instructions: Follow-up with your OB, return for any worsening of your symptoms. Disposition Disposition: Home, Self Care Discharge Date/Time: 12/01/23 15:44
[2023-12-01] MEDS: Ondansetron 4 MG/2 ML Vial IV (13:59)
[2023-12-01] MEDS: 0.9% Normal Saline (1000mL) 1,000 ML 999 ML IV (13:59)
[2023-12-01 14:06] LABS: Mucous, Urine 0 SEEN /hpf (<or=2+); Red Blood Cells-Urine 0 SEEN /hpf (0-5)
[2023-12-01 14:07] LABS: Absolute Lymphocyte Count 1.75 X10^3/uL (0.83-4.51); Absolute Neutrophil Count 6.4 X10^3/uL (2.0-7.7); Basophil# 0.03 X10^3/uL; Basophil% 0.3 % (0-1); Eosinophil# 0.05 X10^3/uL; Eosinophils% 0.6 % (0-5); Hematocrit 29.6 % (37-47); Hemoglobin 9.1 g/dL (12.0-15.0); Lymphocyte # 1.75 X10^3/ul (0.83-4.51); Lymphocyte % 19.7 % (19-41); Mean Corp Hgb Conc 30.7 g/dL (32-36); Mean Corpuscular Hgb 24.3 pg (27.0-32.0); Mean Corpuscular Volume 78.9 fL (81-99); Mean Platelet Vol. 11.1 fl (6.2-12.0); Monocyte# 0.55 X10^3/uL; Monocyte% 6.2 % (0-10); NRBC Flagged by Analyzer 0 % (0-5); Neutrophil # 6.44 X10^3/uL (2.7-7.7); Neutrophil % 72.3 % (47-70); Platelet Count 280 K/mm3 (150-450); RBC Distribution Width CV 17.3 % (11.6-14.6); RBC Distribution Width SD 48.7 fl (35.1-43.9); Red Blood Count 3.75 M/mm3 (4.2-5.4); White Blood Count 8.9 K/mm3 (4.4-11.0)
[2023-12-01 14:08] LABS: Color, Urine Yellow (Yellow); Glucose, Dipstick Normal (Normal); Ketone-Dipstick Negative (Negative); Leukocyte Esterase-Dipstick 500 /ul (Negative); Nitrite-Dipstick Positive (Negative); Occult Blood-Urine 10 /ul (Negative); Protein-Dipstick 30 mg/dl (Negative); Urine Bilirubin Dipstick Negative (Negative); Urine Clarity Clear (Clear); Urine Urobilinogen 4 mg/dl (Normal)
[2023-12-01 14:21] LABS: Bacteria 3+ /hpf (None Seen); Squamous Epithelial Cells - UA 0-5 SEEN /hpf (5-10); White Blood Cells 0-5 SEEN /hpf (0-5)
[2023-12-01 14:29] LABS: AST(SGOT) 7 U/L (15-37); Alanine Aminotransfer ALT/SGPT 10 U/L (13-56); Albumin, Serum 2.4 g/dL (3.2-5.0); Alkaline Phosphatase 92 U/L (45-117); Anion Gap 7 (5-15); BUN 4 mg/dL (7-18); BUN/Creat Ratio 7.2 RATIO (10-20); Bilirubin, Direct < 0.05 mg/dL (0.00-0.30); Chloride 106 mmol/L (98-107); Creatinine, Serum 0.56 mg/dL (0.55-1.02); EST Glomerular Filtration Rate 146 mL/min (>60); Est Glom Filt Rate - Afr Amer 177 mL/min (>60); Estimated Creatinine Clearance 202.87 ml/min; Globulin 3.9 g/dL (2.2-4.2); Glucose 101 mg/dL (74-106); Lipase 20 U/L (13-75); Potassium 3.1 mmol/L (3.5-5.1); Protein, Total 6.3 g/dL (6.4-8.2); Sodium Level 137 mmol/L (136-145)
[2023-12-01] MEDS: Potassium Chloride Oral Tablet 20 MEQ 40 MEQ PO (15:18)
[2023-12-01] MEDS: Nitrofurantoin Macrocrystals 100 MG Capsule PO (15:18)
[2023-12-01 15:43] VITALS: PULSE 70; RESP 16
== END 2023-12-01 15:44 | disposition home or self-care (01) ==
PROVIDERS: Physician Assistant; Emergency Provider Emergency Medicine; Visit Provider Emergency Medicine
DX: O23.43 Unspecified infection of urinary tract in pregnancy, third trimester (principal); O99.891 Other specified diseases and conditions complicating pregnancy; O21.2 Late vomiting of pregnancy; R19.7 Diarrhea, unspecified; Z3A.30 30 weeks gestation of pregnancy; Z90.49 Acquired absence of other specified parts of digestive tract; F17.290 Nicotine dependence, other tobacco product, uncomplicated; O99.333 Smoking (tobacco) complicating pregnancy, third trimester
CPT/HCPCS: 80048; 80076; 81001; 83690; 85025; 87086; 87088; 87186; 96361; 96374; 99282; J7030; A4216; J2405

== ENCOUNTER 2023-12-10 21:33 | Emergency (ER) | payer MEDICAID, SELFPAY ==
[2023-12-10 21:36] VITALS: BP 129/71; PULSE 96; RESP 16; TEMP 36.4; O2SAT 99; BMI 22.7
--- NOTE | 2023-12-10 21:43 | RAD_ITS ---
STUDY: X-RAY CHEST REASON FOR EXAM: Female, 23 years old. sob TECHNIQUE: Single AP portable view of the chest. COMPARISON: 01/28/2020 FINDINGS: The lungs are clear and expanded. There is no demonstrated pleural abnormality. Normal size heart. Normal mediastinum and monserrat. Normal visualized pulmonary arteries. Normal visualized aortic arch and descending thoracic aorta. Normal visualized thoracic spine. Normal visualized ribs, clavicles, and shoulders. There is no demonstrated abnormality of the visualized soft tissue structures of the upper abdomen. RAD/Chest 1 View (Portable) IMPRESSION: Normal x-ray examination of the chest. Electronically Signed: Agustín Couch MD at 21:56 EST ,
[2023-12-11 00:29] VITALS: BP 124/71; PULSE 89; RESP 16; O2SAT 99
[2023-12-11 01:59] VITALS: PULSE 84; RESP 32
[2023-12-11] MEDS: Ipratropium/Albuterol Sulfate 3 ML AMPUL.NEB INHALATION (01:59)
[2023-12-11 02:26] LABS: Absolute Neutrophil Count 8.2 X10^3/uL (2.0-7.7); Basophil# 0.05 X10^3/uL; Basophil% 0.4 % (0-1); Eosinophil# 0.07 X10^3/uL; Eosinophils% 0.6 % (0-5); Hematocrit 32.7 % (37-47); Hemoglobin 9.9 g/dL (12.0-15.0); Lymphocyte % 25.1 % (19-41); Mean Corp Hgb Conc 30.3 g/dL (32-36); Mean Corpuscular Hgb 24.6 pg (27.0-32.0); Mean Corpuscular Volume 81.1 fL (81-99); Mean Platelet Vol. 10.5 fl (6.2-12.0); Monocyte# 0.76 X10^3/uL; Monocyte% 6.2 % (0-10); NRBC Flagged by Analyzer 0 % (0-5); Neutrophil # 8.19 X10^3/uL (2.7-7.7); Neutrophil % 66.3 % (47-70); Platelet Count 265 K/mm3 (150-450); RBC Distribution Width CV 17.7 % (11.6-14.6); RBC Distribution Width SD 51.6 fl (35.1-43.9); Red Blood Count 4.03 M/mm3 (4.2-5.4); White Blood Count 12.3 K/mm3 (4.4-11.0)
--- NOTE | 2023-12-11 02:36 | ED.RN ---
This RN walked into the room to obtain urine sample, patient found sitting up in bed vapping. Pt was reminded that this was a smoke free facility and asked not to do gain. Pt educated that smoking could be making her symptoms worse.
[2023-12-11 02:44] LABS: Mucous, Urine 0 SEEN /hpf (<or=2+)
[2023-12-11 02:46] LABS: Color, Urine Yellow (Yellow); Glucose, Dipstick Normal (Normal); Ketone-Dipstick Negative (Negative); Leukocyte Esterase-Dipstick 100 /ul (Negative); Nitrite-Dipstick Negative (Negative); Occult Blood-Urine Negative /ul (Negative); Protein-Dipstick 15 mg/dl (Negative); Urine Bilirubin Dipstick Negative (Negative); Urine Clarity Clear (Clear); Urine Urobilinogen 1 mg/dl (Normal)
[2023-12-11 02:51] LABS: ALB/GLOB Ratio 0.6 RATIO (0.9-2.4); AST(SGOT) 9 U/L (15-37); Alanine Aminotransfer ALT/SGPT 14 U/L (13-56); Albumin, Serum 2.6 g/dL (3.2-5.0); Alkaline Phosphatase 101 U/L (45-117); Anion Gap 6 (5-15); BUN 9 mg/dL (7-18); BUN/Creat Ratio 17.6 RATIO (10-20); Calcium,Total 8.9 mg/dL (8.5-10.1); Chloride 106 mmol/L (98-107); Creatinine, Serum 0.51 mg/dL (0.55-1.02); EST Glomerular Filtration Rate 161 mL/min (>60); Est Glom Filt Rate - Afr Amer 195 mL/min (>60); Estimated Creatinine Clearance 169.69 ml/min; Globulin 4.2 g/dL (2.2-4.2); Glucose 89 mg/dL (74-106); Potassium 3.7 mmol/L (3.5-5.1); Protein, Total 6.8 g/dL (6.4-8.2); Sodium Level 137 mmol/L (136-145); Troponin-I HS < 3 pg/mL (3.0-54.0)
[2023-12-11 02:53] LABS: Bacteria 1+ /hpf (None Seen); Red Blood Cells-Urine 0-5 SEEN /hpf (0-5); Squamous Epithelial Cells - UA 5-10 SEEN /hpf (5-10); White Blood Cells 0-5 SEEN /hpf (0-5)
--- NOTE | 2023-12-11 03:35 | EX.ED.DYSGE1 ---
HPI History of Present Illness Chief Complaint: Anxiety Informant: patient Narrative Narrative: Patient is a 23-year-old female with history of anxiety, bipolar disorder and currently 31 weeks ( care through [facility]) presenting with shortness of breath. Patient states she has been at OB triage couple times for labor which had to be stopped. Most recently she was there on Saturday (12/08,3 days ago). She states her IV blew. She receives IV fluids and magnesium drip. She notes that since then she has been feeling generally weak, lightheaded, has been feeling short of breath and having chest discomfort. She has had a cough especially when she takes a deep breath. Denies any fever. Denies any new swelling of her legs or history of DVT/PE. Does have history of asthma. States she went to OB triage for any symptoms at [facility] and describes the nurses have not taken her seriously. She states they gave her Vistaril and a breathing treatment and thought it was all anxiety related and discharged home. She notes she is been feeling short of breath since. Up until today she was breathing fast and states she feels like she is breathing underwater while she was sleeping. Tonight her significant other notes that she has a smacking sound in her chest when she breathes and this is what triggered him to come in. Patient does not have any improvement with her Vistaril. Patient does vape. She states this does not feel like her asthma or anxiety. No other complaints or concerns at this time. [facility] Medical History Anxiety Bipolar affect, depressed Constipation during in third trimester Home Medications ondansetron 4 mg disintegrating tablet 4 mg PO Q8H PRN PRN Nausea #10 tabs 12/01/23 [Rx Last Taken Unknown] Allergy/AdvReac Type Severity Reaction Status Date / Time cephalexin monohydrate Allergy Mild Unknown Verified 12/10/23 21:35 [From Keflex] Penicillins Allergy Mild Rash Verified 12/10/23 21:35 escitalopram [From Lexapro] AdvReac Other Verified 12/10/23 21:35 hydrocodone [From [place]] AdvReac Other Verified 12/10/23 21:35 nystatin AdvReac Nausea/Vom/ Verified 12/10/23 21:35 Diarrhea Family History Father Seizures Mother Depression with anxiety Grandmother Hypertension CVA (cerebral vascular accident) Grandfather Diabetes Surgical History History of cholecystectomy History of placement of ear tubes MPFL of right knee s/p right wrist S/P tonsillectomy Social History Smoking Status: Current some day smoker tobacco type: e-cigarettes alcohol intake: never substance use type: does not use caffeine: Yes what type of physical activity do you participate in: none seatbelt use: always ROS ROS ED Constitutional Constitutional ED: Denies chills or fever(s) Eyes Eyes: Denies change in vision ENT ENT ED: Denies sore throat Cardiovascular Cardiovascular: Reports chest pain and other Details: Denies any edema ; Denies palpitations Respiratory/Chest Respiratory/Chest: Reports cough, dyspnea and dyspnea on exertion; Denies sputum Gastrointestinal Gastrointestinal: Denies abdominal pain Genitourinary Genitourinary ED: Reports other Details: Denies any vaginal bleeding or leakage of fluid ; Denies dysuria or urinary frequency Musculoskeletal Musculoskeletal: Denies arthralgias or myalgias Integumentary Denies rash Neurologic Neurologic: Reports weakness; Denies headache(s) Psychiatric Psychiatric: Reports anxiety Hematologic/Lymphatic Hematologic/Lymphatic: Denies easy bleeding or easy bruising EXAM Physical Exam Const Vital Signs: 12/10/23 21:36 12/11/23 00:29 12/11/23 01:59 Temperature 97.5 F L Temperature Source Temporal Pulse Rate 96 89 84 Respiratory Rate 16 16 32 H Respiratory Pattern Tachypnea Blood Pressure 129/71 H 124/71 H Blood Pressure Mean 90 88 Pulse Ox 99 99 Oxygen Delivery Method Room Air 12/11/23 04:11 Temperature Temperature Source Pulse Rate 89 Respiratory Rate 16 Respiratory Pattern Blood Pressure 110/53 L Blood Pressure Mean 72 Pulse Ox 99 Oxygen Delivery Method Room Air Positive well nourished and well developed General Appearance ED: well developed and NAD HEENT Reports TM's clear and moist mucous membranes Tympanic Membrane ED: Yes TM's clear Eyes PERRL and EOMs intact bilaterally Neck no lymphadenopathy, supple and no JVD Chest Wall inspection of chest normal and palpation of chest normal Resp normal respiratory effort and clear to auscultation bilaterally Resp Narrative: Patient is intermittently tachypneic but I suspect it is more intentional because with distraction her respiratory rate does improve the patient can slow her breathing down if asked. Effort and Inspection: Negative for retractions Auscultation: diminished lung sounds; Negative for rales, rhonchi or wheezes Cardio regular rate, regular rhythm and no murmurs GI normal to inspection, nondistended, normoactive bowel sounds, non-tender and non-distended Extremity normal to inspection General Extremety ED: Negative for edema or tenderness General Extremity: Negative for edema Neuro oriented x3 Sensorium / Orientation: alert Motor Exam: Negative for general weakness Psych mental status grossly normal Mood & Affect: anxious; Negative for depressed or tearful Skin no rashes or lesions noted and no wounds MDM MDM MDM Narrative Medical decision making narrative: Patient evaluated for vague sensation of shortness of breath. She is not hypoxic 9% on room air. She is intermittently tachypneic. I am not sure if this is anxiety or not pathologic. Given her status and complaints will obtain cardiopulmonary workup. Patient is given a DuoNeb for her symptoms in the ER she does have diminished breath sounds however not sure if it is because she is not moving air just taking shallow breaths. Patient's blood pressure is normal so I do not think this is preeclampsia at this time. She does have 15 protein in the urine however patient has had mild proteinuria since 2020 in our chart. Workup largely unremarkable. Does have mild leukocytosis of 12.3 which is nonspecific. Has mild anemia with hemoglobin 9.9 which appears stable and likely physiologic associated with her stage of . CMP normal. High-sensitivity troponin less than 3 and D-dimer is less than 0.27. Low suspicion for pulmonary emboli, myocarditis, pericarditis or ACS. Patient clinically does not appear fluid overloaded. Chest x-ray reviewed by myself as well as radiology does not show any acute process including pleural effusions, pulmonary vascular congestion or infiltrate. Urinalysis will be sent for culture but is more consistent with contamination. Patient ambulated and is not hypoxic. Exact cause of her sensation of shortness of breath is not clear but this time I do feel she can safely be discharged home. Patient and significant other agreeable with plan of care. Patient to follow-up outpatient with her [employer]UAL [employer]D ANALYST. Discussed that this could be some type of anxiety/stress reaction. Patient was noted to be vaping in her room by nursing staff. Is counseled that it is very important that she not vape 1 while but to what she is feeling short of breath. Lab Data Attestation: I reviewed the patient's lab results. Labs: Laboratory Results - last 24 hr 12/11/23 12/11/23 02:19 02:35 WBC 12.3 H RBC 4.03 L Hgb 9.9 L Hct 32.7 L MCV 81.1 MCH 24.6 L MCHC 30.3 L RDW Std Deviation 51.6 H RDW Coeff of Robert 17.7 H Plt Count 265 MPV 10.5 Immature Gran % (Auto) 1.400 H Neut % (Auto) 66.3 Lymph % (Auto) 25.1 [place] % (Auto) 6.2 Eos % (Auto) 0.6 Baso % (Auto) 0.4 Absolute Neuts (auto) 8.2 H Absolute Lymphs (auto) 3.10 Nucleated RBC % 0 D-Dimer Quant (PE/DVT) < 0.27 L Sodium 137 Potassium 3.7 Chloride 106 Carbon Dioxide 25.0 Anion Gap 6 BUN 9 Creatinine 0.51 L Estim Creat Clear Calc 169.69 Est GFR (MDRD) Af Amer 195 Est GFR (MDRD) Non-Af 161 BUN/Creatinine Ratio 17.6 Glucose 89 Calcium 8.9 Total Bilirubin 0.30 AST 9 L ALT 14 Alkaline Phosphatase 101 Troponin I High Sens < 3 L Total Protein 6.8 Albumin 2.6 L Globulin 4.2 Albumin/Globulin Ratio 0.6 L Urine Color Yellow Urine Clarity Clear Urine pH 7.0 Ur Specific [place] 1.010 Urine Protein 15 H Urine Glucose (UA) Normal Urine Ketones Negative Urine Occult Blood Negative Urine Nitrite Negative Urine Bilirubin Negative Urine Urobilinogen 1 H Ur Leukocyte Esterase 100 H Urine RBC 0-5 SEEN Urine WBC 0-5 SEEN Ur Squamous Epith Cells 5-10 SEEN Urine Bacteria 1+ Urine Mucus 0 SEEN Radiography Chest X-Ray - ED: 1 View, Read by ED Physician, Read by Radiologist and No Acute Disease Diagnostic Testing: Clinical Impression(s) from Imaging Studies Chest X-Ray 12/10/23 21:43 IMPRESSION: Normal x-ray examination of the chest. Electronically Signed: Agustín Couch MD at 21:56 EST , Rhythm Strip Rhythm Strip: Sinus Rhythm Rate: 86 Ectopy: None EKG Initial EKG: Attestation: I personally reviewed and interpreted this EKG as follows: Interpretation: Sinus Rhythm Comments: Normal sinus rhythm at a rate of 86 bpm Normal axis Normal intervals Normal ST segments Discharge Plan Triage Chief Complaint: Anxiety ED Provider: Yenny Jasmine Dx/Rx/DC Orders Clinical Impression: Dyspnea, unspecified Instructions: ED Anxiety Reaction, ED Dyspnea Prescriptions: No Action ondansetron 4 mg tablet,disintegrating 4 mg PO Q8H PRN PRN (Reason: Nausea) Qty: 10 0RF Primary Care Provider: Care Physician,No Primary Referrals: Care Physician,No Primary [Primary Care Provider] - Activity Restrictions/Additional Instructions: Please follow-up with your M[employer]UAL FUND ANALYST. Your workup was normal including D-dimer, troponin, EKG and chest x-ray. Because your symptoms is not clear however there does not appear to be more severe emergent process going on at this time. Disposition Disposition: Home, Self Care Discharge Date/Time: 12/11/23 05:09
[2023-12-11 03:46] LABS: D-Dimer Quantitative (DVT/PE) < 0.27 FEU/ug/m (0.27-0.49)
[2023-12-11 04:11] VITALS: BP 110/53; PULSE 89; RESP 16; O2SAT 99
[2023-12-11 04:13] VITALS: O2SAT 99
== END 2023-12-11 05:09 | disposition home or self-care (01) ==
PROVIDERS: Emergency Provider Emergency Medicine; Visit Provider Emergency Medicine
DX: R06.00 Dyspnea, unspecified (principal); F31.9 Bipolar disorder, unspecified; F41.9 Anxiety disorder, unspecified; Z3A.31 31 weeks gestation of pregnancy; O99.343 Other mental disorders complicating pregnancy, third trimester
CPT/HCPCS: 71045; 80053; 81001; 84484; 85025; 85379; 87086; 87088; 87631; 93005; 94640; 99284

== ENCOUNTER 2024-01-04 20:20 | Outpatient (CLI) | payer MEDICAID, SELFPAY ==
[2024-01-04 20:46] VITALS: BMI 39.7
[2024-01-04 20:57] VITALS: BP 103/65; PULSE 91; PULSE 97; TEMP 36.4; O2SAT 98
--- NOTE | 2024-01-24 06:48 | OB.TRI.HP_ITS ---
HPI - General General Date of Admission: 01/04/24 Date of Service: 01/04/24 Chief Complaint: rule out labor HPI Narrative KIRAN ELDER, is a 23 F who presents with contractions. no lof, vb. good FM. [facility] PFSH Medical History Anxiety Bipolar affect, depressed Constipation during in third trimester Home Medications ondansetron 4 mg disintegrating tablet 4 mg PO Q8H PRN PRN Nausea #10 tabs 12/01/23 [Rx Last Taken 12/21/23] aspirin 81 mg tablet,delayed release 81 mg PO DAILY 01/04/24 [History Last Taken 01/04/24] nitrofurantoin monohydrate/macrocrystals 100 mg capsule (Macrobid) 100 mg PO DAILY uti 01/04/24 [History Last Taken 01/04/24] Allergy/AdvReac Type Severity Reaction Status Date / Time cephalexin monohydrate Allergy Mild Unknown Verified 01/04/24 21:04 [From Keflex] oxycodone Allergy Mild Vomiting Verified 01/04/24 21:05 Penicillins Allergy Mild Rash Verified 01/04/24 21:04 escitalopram [From Lexapro] AdvReac Other Verified 01/04/24 21:04 hydrocodone [From [place]] AdvReac Other Verified 01/04/24 21:04 nystatin AdvReac Nausea/Vom/ Verified 01/04/24 21:04 Diarrhea Family History Father Seizures Mother Depression with anxiety Grandmother Hypertension CVA (cerebral vascular accident) Grandfather Diabetes Surgical History History of cholecystectomy History of placement of ear tubes MPFL of right knee s/p right wrist S/P tonsillectomy Social History Smoking Status: Current some day smoker tobacco type: e-cigarettes alcohol intake: never substance use type: does not use caffeine: Yes what type of physical activity do you participate in: none seatbelt use: always History 1 Elective abortions Hx Para 1 Spontaneous abortions Hx # Term Pregnancies Ectopic pregnancies Hx # Pregnancies Multiple births # of living children 1 Past Pregnancies Del. Date Name GA/Weeks Outcome Route Bth Weight Infant Gen Labor Lgth Anesthesia Del Locatn Provider FOB 03/01/20 Juan M 38 live - full term Male epidu ral [facility] Delivery Date: 03/01/20 Last Updated by: Lorena Dickens RECURRENT HEAD LICE, PROM, 2 DEGREE LACERATION NST FHR Rate Baby A Baseline: 120 Variability:: Moderate Accelerations:: 15 x 15 Decelerations:: None NST Reactive:: Yes FHR Category:: Category I Uterine Activity:: irregular Assessment & Plan (1) Uterine contractions: PLAN: NST reactive. Not in labor at this time. D/c home with return precautions. (2) 35 weeks gestation of :
== END 2024-01-04 22:55 | disposition home or self-care (01) ==
LOC: WPOUT 20:34 → WP 20:45
PROVIDERS: Referring Provider Obstetrics & Gynecology; Visit Provider Obstetrics & Gynecology
DX: O47.03 False labor before 37 completed weeks of gestation, third trimester (principal); Z3A.35 35 weeks gestation of pregnancy
CPT/HCPCS: 59025; 59050; 87081; 87653; 99221; G0378

== ENCOUNTER 2024-01-24 20:40 | Outpatient (CLI) | payer MEDICAID, SELFPAY ==
[2024-01-04 20:57] VITALS: RESP 18
[2024-01-24 21:15] VITALS: BMI 39.5
[2024-01-24 21:34] VITALS: BP 132/75; PULSE 112; RESP 16; TEMP 36.7; O2SAT 99
[2024-01-24 21:51] LABS: ROM Internal Control Test YES-OK TO RESULT pt. (Internal QC); ROM Patient Test Negative (Negative); Record Kit Lot#, ROM+ K1374
--- NOTE | 2024-01-24 22:05 | OB.TRI.HP_ITS ---
HPI - General HPI Narrative KIRAN ELDER, is a 23 y/o @ 37 weeks who presents to L&D with low back pain. She is a patient of Dr. 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 She states that she came here because she is not happy with her care in [facility]. She denies lof, vaginal bleeding, or decreased movement. She has a history of 2 prior vaginal deliveries, one with Dr. Kidd and one with Dr. Wadsworth. [facility] Medical History Anxiety Bipolar affect, depressed Constipation during in third trimester Home Medications ondansetron 4 mg disintegrating tablet 4 mg PO Q8H PRN PRN Nausea #10 tabs 12/01/23 [Rx Last Taken 12/21/23] aspirin 81 mg tablet,delayed release 81 mg PO DAILY 01/04/24 [History Last Taken 01/04/24] pediatric multivitamin no.49 (Flintstones Gummies chewable tablet) tab PO 01/24/24 [History Last Taken Unknown] Allergy/AdvReac Type Severity Reaction Status Date / Time cephalexin monohydrate Allergy Mild Unknown Verified 01/04/24 21:04 [From Keflex] oxycodone Allergy Mild Vomiting Verified 01/04/24 21:05 Penicillins Allergy Mild Rash Verified 01/04/24 21:04 escitalopram [From Lexapro] AdvReac Other Verified 01/04/24 21:04 hydrocodone [From [place]] AdvReac Other Verified 01/04/24 21:04 nystatin AdvReac Nausea/Vom/ Verified 01/04/24 21:04 Diarrhea Family History Father Seizures Mother Depression with anxiety Grandmother Hypertension CVA (cerebral vascular accident) Grandfather Diabetes Surgical History History of cholecystectomy History of placement of ear tubes MPFL of right knee s/p right wrist S/P tonsillectomy Social History Smoking Status: Current some day smoker tobacco type: e-cigarettes alcohol intake: never substance use type: does not use caffeine: Yes what type of physical activity do you participate in: none seatbelt use: always History 1 Elective abortions Hx Para 1 Spontaneous abortions Hx # Term Pregnancies Ectopic pregnancies Hx # Pregnancies Multiple births # of living children 1 Past Pregnancies Del. Date Name GA/Weeks Outcome Route Bth Weight Gen Labor Lgth Anesthesia Del Locatn Provider FOB 03/01/20 Juan M 38 live - full term Male epidu ral [facility] Delivery Date: 03/01/20 Last Updated by: Lorena Dickesn RECURRENT HEAD LICE, PROM, 2 DEGREE LACERATION ROS Constitutional Constitutional: Reports systems reviewed and no addt'l complaints, except as documented Gastrointestinal Gastrointestinal: Denies bloating, constipation, cramping, diarrhea, nausea or vomiting Genitourinary Genitourinary: Reports other Details: Denies vaginal odor, vaginal bleeding, or vaginal discharge ; Denies difficulty urinating or flank pain Physical Exam HEENT normocephalic Resp normal respiratory effort and normal air movement no CVA tenderness Extremity normal to inspection General Extremity: edema bilateral (trace ) NST FHR Rate Baby A Baseline: 140 Variability:: Moderate Accelerations:: 15 x 15 Decelerations:: None NST Reactive:: Yes FHR Category:: Category I Assessment & Plan (1) Uterine contractions: (2) False labor: PLAN: Plan cx is 1 cm dilated and monitor does not show true contractions on the monitor. dc to home to follow up with her primary formula clerk. Charges/Coding Visit Charges Office Visits / Consults: 48807 OV L3 New 30min Multi Select Codes Visit Charges Office Visit/Consults: 12834 OV L3 Est 20min Urinary/Genital Urinary/Genital CPT Codes: 51092-37 non-stress test Interp
[2024-01-24] MEDS: cycloBENZAPRine HCl 5 MG TABLET PO (22:29)
== END 2024-01-24 22:35 | disposition home or self-care (01) ==
LOC: WPOUT 20:59 → WP 20:59
PROVIDERS: Visit Provider Obstetrics & Gynecology
DX: O47.1 False labor at or after 37 completed weeks of gestation (principal); Z3A.37 37 weeks gestation of pregnancy
CPT/HCPCS: 59025; 59050; 84112; 99221; G0378

== ENCOUNTER 2024-09-09 09:19 | Emergency (ER) | payer MEDICAID, SELFPAY ==
[2024-09-09 09:19] VITALS: BP 122/87; PULSE 91; RESP 16; TEMP 36; O2SAT 99; BMI 36.0
--- NOTE | 2024-09-09 09:43 | RAD_ITS ---
INDICATION: injury EXAMINATION/TECHNIQUE: X-RAY - LEFT XR Wrist Min 4 VIEWS COMPARISON: Right hand dated September 02, 2020 FINDINGS: SOFT TISSUES: No soft tissue swelling or gas. No radiopaque foreign body. BONES/JOINTS: There is a nondisplaced ulnar styloid fracture. Normal alignment. Preservation of the joint space.. No sclerotic or destructive changes observed. RAD/Wrist min 3 Views IMPRESSION: Ulnar styloid fracture. Electronically Signed: Rosalva Bourne MD at 10:10 EDT ,
--- NOTE | 2024-09-09 10:27 | EX.ED.UPPERE ---
HPI History of Present Illness HPI Narrative: Patient presents with left wrist injury that occurred last night. Patient states she was playing with some friends and started to run. Patient states her knee gave out and she fell onto her left wrist. Patient states her pain is worse with any movement. Patient describes it as sharp. Patient states nothing helps it. Patient denies any paresthesias or weakness. Patient denies any head injury or loss of consciousness. Patient denies any other injuries. Chief Complaint: Upper Extremity Injury Occured/Mechanism Mechanism/Context: Yes fall Onset/Context/Timing Onset: Yesterday Context: Sudden Onset Timing: Continuous Location: Left wrist Worsened by: Movement Relieved by: Nothing Associated Symptoms Associated Symptoms: Negative for Parasthesia, Weakness or Loss of Funtion PFSH [facility] Medical History Constipation during in third trimester Anxiety Bipolar affect, depressed Allergy/AdvReac Type Severity Reaction Status Date / Time cephalexin monohydrate (From Allergy Mild Unknown Verified 09/09/24 09:19 Keflex) oxycodone Allergy Mild Vomiting Verified 09/09/24 09:19 Penicillins Allergy Mild Rash Verified 09/09/24 09:19 escitalopram (From Lexapro) AdvReac Other Verified 09/09/24 09:19 hydrocodone (From [place]) AdvReac Other Verified 09/09/24 09:19 nystatin AdvReac Nausea/Vom/ Verified 09/09/24 09:19 Diarrhea Family History Father Seizures Mother Depression with anxiety Grandmother Hypertension CVA (cerebral vascular accident) Grandfather Diabetes Surgical History History of cholecystectomy s/p right wrist MPFL of right knee S/P tonsillectomy History of placement of ear tubes Social History Smoking Status: Current some day smoker tobacco type: e-cigarettes alcohol intake: never substance use type: does not use caffeine: Yes what type of physical activity do you participate in: none seatbelt use: always ROS ROS ED Constitutional Constitutional ED: Denies chills or fever(s) Eyes Eyes: Denies blurry vision or change in vision ENT ENT ED: Denies rhinorrhea or sore throat Cardiovascular Cardiovascular: Denies chest pain or palpitations Respiratory/Chest Respiratory/Chest: Denies cough or dyspnea Gastrointestinal Gastrointestinal: Reports nausea; Denies vomiting Genitourinary Genitourinary ED: Denies dysuria or hematuria Musculoskeletal Musculoskeletal: Denies back pain or neck pain Integumentary Denies abscess or rash Neurologic Neurologic: Denies headache(s) or weakness Allergic/Immunologic Allergic/Immunologic ED: Denies mouth swelling or urticaria EXAM Physical Exam Const Vital Signs: 09/09/24 09:19 Temperature 96.8 F L Temperature Source Temporal Pulse Rate 91 Respiratory Rate 16 Blood Pressure 122/87 H Blood Pressure Mean 98 Pulse Ox 99 Oxygen Delivery Method Room Air Positive well nourished and well developed General Appearance ED: well developed and NAD HEENT Reports moist mucous membranes Neck full ROM and supple Extremity Extremity Narrative: There is tenderness over the left wrist. There is some mild edema. There is no ecchymosis. There is no deformity noted. Range of motion was limited in all motions of the left wrist secondary to pain. Radial pulses are equal bilaterally. Strength is 5/5 in the radial, median, and ulnar areas. Sensation is intact to light touch in the radial, median, and ulnar areas. Neuro oriented x3, CN's II-XII intact bilaterally, moves all extremities, no focal motor deficits and no sensory deficits noted Sensorium / Orientation: alert Motor Exam: strength 5/5 throughout MDM MDM MDM Narrative Medical decision making narrative: Differential diagnosis includes fracture, sprain, contusion. X-rays of the left wrist will be obtained to assess for fracture. Radiography Diagnostic Testing: Clinical Impression(s) from Imaging Studies Wrist X-Ray 09/09/24 09:43 IMPRESSION: Ulnar styloid fracture. Electronically Signed: Rosalva Bourne MD at 10:10 EDT , X-rays of the left wrist were obtained. There are 4 views. On my independent interpretation, there is a nondisplaced fracture of the ulnar styloid process. There is no other acute fracture noted. Radiologist also interpreted the x-rays and agrees. Treatment and Re-Evaluation Narrative: Patient was given a dose of Naprosyn here. Patient was advised of her findings. Patient was given a Velcro wrist splint. Patient was instructed to ice and elevate the left wrist. Patient was given a prescription for Naprosyn. Patient was instructed to follow-up with her primary care physician in 5 to 7 days. Patient was also given a referral for orthopedics. Patient understood and was agreeable with the plan. All questions were answered. Discharge Plan Triage Chief Complaint: Upper Extremity Injury ED Provider: Dominic White Dx/Rx/DC Orders Clinical Impression: Closed fracture of styloid process of left ulna, Fall Instructions: ED Fracture, Wrist, General Primary Care Provider: Care Physician,No Primary Referrals: Topher John MD [Med Staff - Active Staff] - 5-7 Days Davide Yoo MD [Med Staff - Active Staff] - 5-7 Days Care Physician,No Primary [Primary Care Provider] - Print Language: Azeri Disposition Disposition: Home, Self Care
== END 2024-09-09 10:50 | disposition home or self-care (01) ==
PROVIDERS: Emergency Provider Emergency Medicine; Visit Provider Emergency Medicine
DX: S52.612A Displaced fracture of left ulna styloid process, initial encounter for closed fracture (principal); W18.39XA Other fall on same level, initial encounter; Y93.02 Activity, running; Z79.899 Other long term (current) drug therapy; Z90.49 Acquired absence of other specified parts of digestive tract; F17.290 Nicotine dependence, other tobacco product, uncomplicated
CPT/HCPCS: 73110; 99283

== ENCOUNTER 2024-12-21 17:39 | Emergency (ER) | payer MEDICAID, SELFPAY ==
[2024-12-21 17:42] VITALS: BP 126/73; PULSE 124; RESP 20; TEMP 36.9; O2SAT 99; BMI 40.9
[2024-12-21 19:40] VITALS: BP 131/80; PULSE 78; RESP 16; O2SAT 98
--- NOTE | 2024-12-21 19:44 | EX.ED.VIS.UR ---
HPI HPI - URI History of Present Illness Chief Complaint: Shortness of Breath Detail of Chief Complaint: Cough and shortness of breath Informant: patient Narrative Narrative: Patient presents with cough and shortness of breath that started for 5 days ago. She complains of subjective fever. She has history of asthma. She denies sick contacts but does live in a van with other individuals. She complains of nausea. ROS ROS ED Review of Systems ROS Unobtainable: other Constitutional Constitutional ED: Reports fever(s) and lethargy; Denies chills, sweats or weight loss Eyes Eyes: Denies blurry vision, change in vision or diplopia ENT ENT ED: Denies rhinorrhea or sore throat Cardiovascular Cardiovascular: Denies chest pain, orthopnea or racing heartbeat Respiratory/Chest Respiratory/Chest: Reports cough and dyspnea; Denies dyspnea on exertion, orthopnea or sputum Gastrointestinal Gastrointestinal: Denies abdominal pain, diarrhea, nausea or vomiting Genitourinary Genitourinary ED: Denies dysuria, hematuria or urinary frequency Musculoskeletal Musculoskeletal: Denies arthralgias, back pain, myalgias or neck pain Integumentary Denies abscess, Abrasions or rash Neurologic Neurologic: Reports headache(s); Denies weakness Psychiatric Psychiatric: Denies anxiety, depression or suicidal thoughts Endocrine Endocrinology: Denies polydipsia, polyphagia or polyuria Hematologic/Lymphatic Hematologic/Lymphatic: Denies easy bleeding, easy bruising or lymphadenopathy Allergic/Immunologic Allergic/Immunologic ED: Denies mouth swelling, tongue swelling or urticaria PFSH PFSH Medical History Constipation during in third trimester Anxiety Bipolar affect, depressed Home Medications ?Medication ?Instructions ?Recorded ?Last Taken ?Type benzonatate 200 mg capsule 200 mg PO TID PRN cough #14 caps 12/21/24 Unknown Rx ondansetron 4 mg disintegrating 4 mg PO Q8H PRN PRN Nausea #10 tabs 12/21/24 Unknown Rx tablet Allergy/AdvReac Type Severity Reaction Status Date / Time cephalexin monohydrate (From Allergy Mild Unknown Verified 12/21/24 17:42 Keflex) oxycodone Allergy Mild Vomiting Verified 12/21/24 17:42 Penicillins Allergy Mild Rash Verified 12/21/24 17:42 escitalopram (From Lexapro) AdvReac Other Verified 12/21/24 17:42 hydrocodone (From [place]) AdvReac Other Verified 12/21/24 17:42 nystatin AdvReac Nausea/Vom/ Verified 12/21/24 17:42 Diarrhea Family History Father Seizures Mother Depression with anxiety Grandmother Hypertension CVA (cerebral vascular accident) Grandfather Diabetes Surgical History History of cholecystectomy s/p right wrist MPFL of right knee S/P tonsillectomy History of placement of ear tubes Social History Smoking Status: Current some day smoker tobacco type: e-cigarettes alcohol intake: never substance use type: does not use caffeine: Yes what type of physical activity do you participate in: none seatbelt use: always EXAM Physical Exam Const Vital Signs: 12/21/24 17:42 Temperature 98.4 F Temperature Source Oral Pulse Rate 124 H Respiratory Rate 20 H Blood Pressure 126/73 H Blood Pressure Mean 90 Pulse Ox 99 Oxygen Delivery Method Room Air Positive well nourished and well developed General Appearance ED: well developed and NAD HEENT Reports TM's clear and moist mucous membranes normocephalic and atraumatic; Negative for trauma or tenderness Tympanic Membrane ED: Yes TM's clear Eyes PERRL and EOMs intact bilaterally General Eye ED: Negative for pale conjunctiva or scleral icterus Neck no lymphadenopathy, supple and no JVD General: Negative for tenderness Chest Wall inspection of chest normal and palpation of chest normal Chest: Negative for tenderness Resp normal respiratory effort and clear to auscultation bilaterally Effort and Inspection: Negative for respiratory distress or pain with movement Auscultation: Negative for rhonchi, wheezes or diminished lung sounds Cardio regular rhythm, S1 normal heart sound, S2 normal heart sound and no murmurs Rate: tachycardic Peripheral Pulses: pulses 2+ throughout GI normal to inspection, nondistended, normoactive bowel sounds, soft to palpation, non-tender, non-distended and no masses Back/Spine no CVA tenderness and no thoracic nor lumbar tenderness Extremity normal to inspection General Extremety ED: Negative for edema General Extremity: Negative for edema Neuro oriented x3, CN's II-XII intact bilaterally, no sensory deficits noted and gait normal Sensorium / Orientation: awake, alert, oriented to person, oriented to place and oriented to time Motor Exam: strength 5/5 throughout and strength abnormal Psych mental status grossly normal Skin no rashes or lesions noted and no wounds MDM MDM MDM Narrative Medical decision making narrative: Patient presents with cough and fever as well as headache and bodyaches. Clinically looks well. Suspect likely viral etiology. Nursing staff started protocol with lab work and testing for COVID flu and RSV. Testing for COVID flu and RSV did return positive for influenza A. She is not in the window for starting Tamiflu as symptoms are more and for 5 days ago. I do not feel she needs any imaging. Will dispense an albuterol MDI given her history of asthma. Will give Tessalon Perles. Will start on Zofran. Also gave her Toradol IV here. Advised to follow-up with primary care physician on-call for no doc within next 5 to 7 days. She is to return if increasing shortness of breath or condition should worsen anyway. Discharge Plan Triage Chief Complaint: Shortness of Breath ED Provider: Redd Yang Dx/Rx/DC Orders Clinical Impression: Influenza A Instructions: ED Influenza (Adult) Prescriptions: New ondansetron 4 mg tablet,disintegrating 4 mg PO Q8H PRN PRN (Reason: Nausea) Qty: 10 0RF benzonatate 200 mg capsule 200 mg PO TID PRN (Reason: cough) Qty: 14 0RF Primary Care Provider: Care Physician,No Primary Referrals: Topher John MD [Med Staff - Active Staff] - 5-7 Days Care Physician,No Primary [Primary Care Provider] - Print Language: Upper Sorbian Disposition Disposition: Home, Self Care
[2024-12-21] MEDS: Ondansetron 4 MG/2 ML Vial IV (19:54)
[2024-12-21] MEDS: Benzonatate 100 MG Capsule 200 MG PO (19:54)
[2024-12-21] MEDS: Ketorolac 60 MG/2 ML Vial IM (19:58)
[2024-12-21 20:02] VITALS: O2SAT 100; O2SAT 99
[2024-12-21 20:03] VITALS: BP 131/80; PULSE 78; RESP 16; TEMP 36.6; O2SAT 100
[2024-12-21 20:31] VITALS: PULSE 106; RESP 18
[2024-12-21] MEDS: Albuterol Sulfate 8 gm Inhaler (60 puffs) 2 PUFF INHALATION (20:31)
== END 2024-12-21 20:36 | disposition home or self-care (01) ==
PROVIDERS: Emergency Provider Emergency Medicine; Visit Provider Emergency Medicine
DX: J10.1 Influenza due to other identified influenza virus with other respiratory manifestations (principal); Z59.02 Unsheltered homelessness; R51.9 Headache, unspecified; F17.290 Nicotine dependence, other tobacco product, uncomplicated; Z90.49 Acquired absence of other specified parts of digestive tract
CPT/HCPCS: 87631; 94640; 94760; 96372; 96374; 96375; 99283; J2405

== ENCOUNTER 2024-12-31 19:24 | Emergency (ER) | payer MEDICAID, SELFPAY ==
[2024-12-31 19:25] VITALS: BP 133/81; PULSE 91; RESP 16; TEMP 36.7; O2SAT 96; BMI 41.2
[2024-12-31 19:44] LABS: Absolute Lymphocyte Count 2.98 X10^3/uL (0.83-4.51); Absolute Neutrophil Count 4.5 X10^3/uL (2.0-7.7); Basophil# 0.05 X10^3/uL; Basophil% 0.6 % (0-1); Eosinophil# 0.22 X10^3/uL; Eosinophils% 2.6 % (0-5); Hematocrit 45.8 % (37-47); Hemoglobin 14.9 g/dL (12.0-15.0); Lymphocyte # 2.98 X10^3/ul (0.83-4.51); Lymphocyte % 35.7 % (19-41); Mean Corp Hgb Conc 32.5 g/dL (32-36); Mean Corpuscular Hgb 27.1 pg (27.0-32.0); Mean Corpuscular Volume 83.3 fL (81-99); Mean Platelet Vol. 10.4 fl (6.2-12.0); Monocyte# 0.59 X10^3/uL; Monocyte% 7.1 % (0-10); NRBC Flagged by Analyzer 0 % (0-5); Neutrophil # 4.46 X10^3/uL (2.7-7.7); Neutrophil % 53.5 % (47-70); Platelet Count 399 K/mm3 (150-450); RBC Distribution Width CV 13.6 % (11.6-14.6); RBC Distribution Width SD 41.4 fl (35.1-43.9); White Blood Count 8.3 K/mm3 (4.4-11.0)
[2024-12-31 19:53] LABS: Internal QC Validated? YES +Cl - CLEAR BKGD; Pregnancy, Serum, hCG Quali. NEGATIVE Negative
[2024-12-31 19:58] LABS: Mucous, Urine 0 SEEN /hpf (<or=2+)
[2024-12-31 20:01] LABS: Color, Urine Yellow (Yellow); Glucose, Dipstick Normal (Normal); Ketone-Dipstick Negative (Negative); Leukocyte Esterase-Dipstick 25 /ul (Negative); Nitrite-Dipstick Negative (Negative); Occult Blood-Urine 10 /ul (Negative); Protein-Dipstick 15 mg/dl (Negative); Urine Bilirubin Dipstick Negative (Negative); Urine Clarity Clear (Clear); Urine Urobilinogen 1 mg/dl (Normal)
[2024-12-31 20:01] LABS: ALB/GLOB Ratio 0.8 RATIO (0.9-2.4); AST(SGOT) 14 U/L (15-37); Alanine Aminotransfer ALT/SGPT 30 U/L (13-56); Albumin, Serum 3.6 g/dL (3.2-5.0); Alkaline Phosphatase 131 U/L (45-117); Anion Gap 5 (5-15); BUN 10 mg/dL (7-18); BUN/Creat Ratio 13.2 RATIO (10-20); Chloride 108 mmol/L (98-107); Creatinine, Serum 0.76 mg/dL (0.55-1.02); EST Glomerular Filtration Rate 102 mL/min (>60); Est Glom Filt Rate - Afr Amer 123 mL/min (>60); Estimated Creatinine Clearance 155.27 ml/min; Globulin 4.4 g/dL (2.2-4.2); Glucose 85 mg/dL (74-106); Potassium 3.8 mmol/L (3.5-5.1); Sodium Level 140 mmol/L (136-145)
[2024-12-31 20:08] LABS: Bacteria 1+ /hpf (None Seen); Red Blood Cells-Urine 0 SEEN /hpf (0-5); Squamous Epithelial Cells - UA 0-5 SEEN /hpf (5-10); White Blood Cells 0-5 SEEN /hpf (0-5)
--- NOTE | 2024-12-31 21:38 | ED.VIS.GI ---
HPI HPI - GI History of Present Illness Chief Complaint: Abd Pain Detail of Chief Complaint: Pelvic pain. Informant: patient Abdominal Pain/Flank Pain Onset: Days Context: Gradual Onset Timing: Continuous Quality: Cramping Current Severity: Mild Maximum Severity: Moderate Nausea/Vomiting/Emesis GI Symptom: Negative for Nausea or Vomiting Diarrhea/Melena/Hematochezia GI Symptom: Negative for Diarrhea, Melena or Hematochezia Associated Symptoms Associated Symptoms: Negative for Dysuria, Frequency, Hematuria or Urgency Narrative Narrative: 24-year-old female states that she has an IUD that has been in since October was placed in [facility]. And is complaining of pelvic pain and cramping. Denies any dysuria. Denies any vaginal bleeding. Last menstrual period was 3 months ago prior to the IUD being placed. Denies any discharge. No fever. She has had a prior cholecystectomy. And a prior D&C. Prior similar symptoms: Yes Recent Illness/Hospitalization: No PFSH PFSH Medical History Constipation during in third trimester Anxiety Bipolar affect, depressed Home Medications ?Medication ?Instructions ?Recorded ?Last Taken ?Type benzonatate 200 mg capsule 200 mg PO TID PRN cough #14 caps 12/21/24 Unknown Rx ondansetron 4 mg disintegrating 4 mg PO Q8H PRN PRN Nausea #10 tabs 12/21/24 Unknown Rx tablet Allergy/AdvReac Type Severity Reaction Status Date / Time cephalexin monohydrate (From Allergy Mild Unknown Verified 12/31/24 19:27 Keflex) oxycodone Allergy Mild Vomiting Verified 12/31/24 19:27 Penicillins Allergy Mild Rash Verified 12/31/24 19:27 escitalopram (From Lexapro) AdvReac Other Verified 12/31/24 19:27 hydrocodone (From [place]) AdvReac Other Verified 12/31/24 19:27 nystatin AdvReac Nausea/Vom/ Verified 12/31/24 19:27 Diarrhea Family History Father Seizures Mother Depression with anxiety Grandmother Hypertension CVA (cerebral vascular accident) Grandfather Diabetes Surgical History History of cholecystectomy s/p right wrist MPFL of right knee S/P tonsillectomy History of placement of ear tubes Social History Smoking Status: Current some day smoker tobacco type: e-cigarettes alcohol intake: never substance use type: does not use caffeine: Yes what type of physical activity do you participate in: none seatbelt use: always ROS ROS ED ROS Narrative Pelvic pain only. No bleeding. No discharge. No dysuria. No fever. Constitutional Constitutional ED: Denies chills or fever(s) ENT ENT ED: Denies ear pain Cardiovascular Cardiovascular: Denies chest pain Respiratory/Chest Respiratory/Chest: Denies cough Gastrointestinal Gastrointestinal: Reports other Details: Pelvic pain ; Denies abdominal pain Genitourinary Genitourinary ED: Denies dysuria or hematuria Musculoskeletal Musculoskeletal: Denies arthralgias or back pain Integumentary Denies abscess Neurologic Neurologic: Denies headache(s) Psychiatric Psychiatric: Denies anxiety or depression Endocrine Endocrinology: Denies polydipsia Hematologic/Lymphatic Hematologic/Lymphatic: Denies easy bleeding Allergic/Immunologic Allergic/Immunologic ED: Denies mouth swelling or tongue swelling EXAM Physical Exam Narrative Exam Narrative: 22-year-old female no acute distress vital signs stable afebrile. Significant other at bedside. HEENT exam moist mucous membranes. No acute abnormality. Lungs clear. Heart regular rhythm rate about 90 no murmur. Chest wall ribs nontender. Abdomen soft nondistended normal bowel sounds without peritoneal signs. She complains of suprapubic pelvic pain but has no reproducible pain. No hernia or mass. No right upper or right lower quadrant pain. No distention. Pelvic exam done with female nurse present in the room. On speculum exam there is no bleeding. No discharge. Cervical os is closed. There appears to be a small string hanging from the very edge of the cervical os. There are no lesions. There is no signs of infection. On bimanual exam she has minimal uterine tenderness. She has no adnexal mass or tenderness. Moving all 4 extremities. Nontender no edema. Back nontender. She is awake and alert. Const Vital Signs: 12/31/24 19:25 Temperature 98.0 F Temperature Source Temporal Pulse Rate 91 Respiratory Rate 16 Blood Pressure 133/81 H Blood Pressure Mean 98 Pulse Ox 96 Oxygen Delivery Method Room Air Positive well nourished, well developed and obese; Negative for cachectic, contractures or unkempt General Appearance ED: well developed and NAD; Negative for unkempt, cachectic, contractures or pallor Nutritional Appearance: obese; Negative for cachectic HEENT Reports moist mucous membranes normocephalic and atraumatic; Negative for trauma or tenderness Eyes PERRL and EOMs intact bilaterally Neck no lymphadenopathy, supple and no JVD General: Negative for tenderness Lymph Lymphatic: Negative for other Resp normal respiratory effort and clear to auscultation bilaterally Effort and Inspection: Negative for respiratory distress Auscultation: Negative for rales, rhonchi, wheezes or diminished lung sounds Cardio regular rate, regular rhythm, S1 normal heart sound, S2 normal heart sound and no murmurs Rate: Negative for bradycardia or tachycardic Rhythm: Negative for abnormal rhythm GI non-tender, non-distended and no masses GI Narrative: Suprapubic pain but no reproducible tenderness. Auscultation: normoactive bowel sounds Palpation: soft; Negative for tender, guarding, rigid, hernia, mass, pulsatile mass or rebound tenderness present Back/Spine no CVA tenderness General Back: Negative for CVA tenderness Cervical Spine: Negative for cervical spine tenderness Thoracic Spine / Upper Back: Negative for thoracic spinal tenderness Lumbar Spine / Lower Back: Negative for lumbar spinal tenderness Extremity full ROM General Extremety ED: Negative for edema or tenderness General Extremity: Negative for edema Neuro CN's II-XII intact bilaterally and moves all extremities Sensorium / Orientation: alert, oriented to person, oriented to place and oriented to time; Negative for orientation impaired or confused Motor Exam: strength 5/5 throughout Psych mental status grossly normal and thought process normal Appearance: Negative for unkempt Attitude: No agitated Mood & Affect: anxious; Negative for depressed or tearful Skin no wounds General Skin Exam: Negative for jaundice or pallor Lesions: No no lesions Rashes: No no rashes Trauma: Negative for abrasion Nails: Negative for discolored MDM MDM MDM Narrative Medical decision making narrative: 24-year-old complaining of pelvic pain with an IUD. Pelvic exam appears to be in good position. There is no bleeding or discharge or signs of infection. Explained to the patient there is nothing else to do denying the emergency department. She has a follow-up appointment with her nurse staff certified nurse midwife in [place] on Saturday. They can decide then if they want to remove the IUD. It appears to be in good position and she does not need any imaging at this time. Patient was offered pain medication here which she deferred. She will use Tylenol and Motrin at home for pain. Lab Data Attestation: I reviewed the patient's lab results. Lab results narrative: CBC normal. White count 8. H&H 14 and 45. Platelets 399. Electrolytes unremarkable. Gap 5. Normal BUN and creatinine. Glucose 85. Liver enzymes normal. Serum test negative. UA negative. Labs: Laboratory Results - last 24 hr 12/31/24 12/31/24 19:35 19:47 WBC 8.3 RBC 5.50 H Hgb 14.9 Hct 45.8 MCV 83.3 MCH 27.1 MCHC 32.5 RDW Std Deviation 41.4 RDW Coeff of Robert 13.6 Plt Count 399 MPV 10.4 Immature Gran % (Auto) 0.500 Neut % (Auto) 53.5 Lymph % (Auto) 35.7 [place] % (Auto) 7.1 Eos % (Auto) 2.6 Baso % (Auto) 0.6 Absolute Neuts (auto) 4.5 Absolute Lymphs (auto) 2.98 Nucleated RBC % 0 Sodium 140 Potassium 3.8 Chloride 108 H Carbon Dioxide 28.0 Anion Gap 5 BUN 10 Creatinine 0.76 Estim Creat Clear Calc 155.27 Est GFR (MDRD) Af Amer 123 Est GFR (MDRD) Non-Af 102 BUN/Creatinine Ratio 13.2 Glucose 85 Calcium 9.0 Total Bilirubin 0.30 AST 14 L ALT 30 Alkaline Phosphatase 131 H Total Protein 8.0 Albumin 3.6 Globulin 4.4 H Albumin/Globulin Ratio 0.8 L Serum , Qual NEGATIVE Urine Color Yellow Urine Clarity Clear Urine pH 7.0 Ur Specific [place] 1.010 Urine Protein 15 H Urine Glucose (UA) Normal Urine Ketones Negative Urine Occult Blood 10 H Urine Nitrite Negative Urine Bilirubin Negative Urine Urobilinogen 1 H Ur Leukocyte Esterase 25 H Urine RBC 0 SEEN Urine WBC 0-5 SEEN Ur Squamous Epith Cells 0-5 SEEN Urine Bacteria 1+ Urine Mucus 0 SEEN Discharge Plan Triage Chief Complaint: Abd Pain ED Provider: Gregorio Garcia Dx/Rx/DC Orders Clinical Impression: Pelvic pain, History of use of contraceptive intrauterine device (IUD) Instructions: ED Pelvic Pain, Unknown Cause Prescriptions: No Action ondansetron 4 mg tablet,disintegrating 4 mg PO Q8H PRN PRN (Reason: Nausea) Qty: 10 0RF benzonatate 200 mg capsule 200 mg PO TID PRN (Reason: cough) Qty: 14 0RF Primary Care Provider: Care Physician,No Primary Referrals: Care Physician,No Primary [Primary Care Provider] - Activity Restrictions/Additional Instructions: Motrin and Tylenol for pain. No intercourse. Follow-up with your nurse staff certified nurse midwife with your scheduled appointment on Saturday. Print Language: Romansh Disposition Disposition: Home, Self Care
== END 2024-12-31 21:48 | disposition home or self-care (01) ==
PROVIDERS: Emergency Provider Emergency Medicine; Visit Provider Emergency Medicine
DX: R10.2 Pelvic and perineal pain (principal); Z90.49 Acquired absence of other specified parts of digestive tract; F17.290 Nicotine dependence, other tobacco product, uncomplicated; E66.9 Obesity, unspecified; Z97.5 Presence of (intrauterine) contraceptive device
CPT/HCPCS: 80053; 81001; 84703; 85025; 99282; A4216

== ENCOUNTER 2025-01-19 20:04 | Emergency (ER) | payer MEDICAID, SELFPAY ==
[2025-01-19 20:08] VITALS: BP 122/85; PULSE 110; RESP 18; TEMP 36.1; O2SAT 99; BMI 42.4
--- NOTE | 2025-01-19 21:15 | EKG12_ITS ---
Test Reason : DYSRHYTHMIA Blood Pressure : */* mmHG Vent. Rate : 82 BPM Atrial Rate : 82 BPM P-R Int : 146 ms QRS Dur : 90 ms QT Int : 398 ms P-R-T Axes : 18 43 29 degrees QTcB Int : 464 ms Normal sinus rhythm Normal ECG Confirmed by KATHY JOE, MIGUEL ([id number]), supervising editor trailer DONY SOLANO ([id number]) on 01/25/2025 11:19:33 AM Referred By: Confirmed By: MIGUEL CHAVEZ MD
--- NOTE | 2025-01-19 21:16 | EX.ED.DYSGE1 ---
HPI History of Present Illness Chief Complaint: Edema Informant: patient Onset/Context/Timing Onset: Days Context: Gradual Onset Timing: Continuous Current Severity: Moderate Maximum Severity: Moderate Narrative Narrative: 24-year-old female history of bipolar disorder prior preeclampsia with the and 2021. Currently says she has had negative test at home. But says for the last week she has had bilateral lower extremity edema. The other time she had this is when she was . Said recently she changed from the Mirena to a oral control pill. She was concerned she may have a blood clot. Says the swelling is in both legs. She denies any chest pain. No hemoptysis. Denies any nausea, vomiting or diarrhea. No history of kidney disease nor liver disease. Prior similar symptoms: Yes Recent Illness/Hospitalization: No [facility] Medical History Constipation during in third trimester Anxiety Bipolar affect, depressed Home Medications ?Medication ?Instructions ?Recorded ?Last Taken ?Type benzonatate 200 mg capsule 200 mg PO TID PRN cough #14 caps 12/21/24 Unknown Rx ondansetron 4 mg disintegrating 4 mg PO Q8H PRN PRN Nausea #10 tabs 12/21/24 Unknown Rx tablet furosemide 20 mg tablet (Lasix) 20 mg PO DAILY #3 tabs 01/19/25 Unknown Rx Allergy/AdvReac Type Severity Reaction Status Date / Time cephalexin monohydrate (From Allergy Mild Unknown Verified 01/19/25 20:08 Keflex) oxycodone Allergy Mild Vomiting Verified 01/19/25 20:08 Penicillins Allergy Mild Rash Verified 01/19/25 20:08 escitalopram (From Lexapro) AdvReac Other Verified 01/19/25 20:08 hydrocodone (From [place]) AdvReac Other Verified 01/19/25 20:08 nystatin AdvReac Nausea/Vom/ Verified 01/19/25 20:08 Diarrhea Family History Father Seizures Mother Depression with anxiety Grandmother Hypertension CVA (cerebral vascular accident) Grandfather Diabetes Surgical History History of cholecystectomy s/p right wrist MPFL of right knee S/P tonsillectomy History of placement of ear tubes Social History household members: significant other housing: apartment Smoking Status: Current some day smoker tobacco type: e-cigarettes alcohol intake: never substance use type: does not use caffeine: Yes what type of physical activity do you participate in: none seatbelt use: always ROS ROS ED ROS Narrative Bilateral lower extremity swelling. No recent illness. Constitutional Constitutional ED: Denies chills or fever(s) Eyes Eyes: Denies blurry vision ENT ENT ED: Denies ear pain Cardiovascular Cardiovascular: Denies chest pain or palpitations Respiratory/Chest Respiratory/Chest: Denies cough or dyspnea Gastrointestinal Gastrointestinal: Denies abdominal pain Genitourinary Genitourinary ED: Denies dysuria or hematuria Musculoskeletal Musculoskeletal: Denies arthralgias or back pain Integumentary Denies abscess or Abrasions Psychiatric Psychiatric: Denies anxiety or depression Endocrine Endocrinology: Denies cold intolerance Hematologic/Lymphatic Hematologic/Lymphatic: Reports none Allergic/Immunologic Allergic/Immunologic ED: Denies mouth swelling, tongue swelling or urticaria EXAM Physical Exam Narrative Exam Narrative: Well-appearing 24-year-old female. Sitting upright in bed. Vital signs are stable afebrile. Initial blood pressure 122/85. Pulse ox 9 9% on room air no signs of hypoxia. Significant other is present in the room. H EENT exam pupils round react light. Moist mucous membranes. Neck nontender no JVD. No lymphadenopathy. Lungs clear to auscultation bilaterally. Heart regular rhythm rate about 100 no murmur. Abdomen is soft nontender normal bowel sounds without peritoneal signs. Moving all 4 extremities. 1-2+ pitting edema both lower extremities. Equal symmetrical. Normal dorsi plantarflexion. Normal strength and sensation. Calves are nontender without cords. Neurologically she is awake and alert no focal motor deficits. Const Vital Signs: 01/19/25 20:08 01/19/25 20:56 01/19/25 22:05 Temperature 97 F L Temperature Source Temporal Pulse Rate 110 H 78 Respiratory Rate 18 16 Respiratory Effort Normal Non-Labored Respiratory Pattern Normal Blood Pressure 122/85 H 112/89 H Blood Pressure Mean 97 96 Pulse Ox 99 98 Oxygen Delivery Method Room Air Positive well nourished, well developed and obese; Negative for cachectic, contractures or unkempt General Appearance ED: well developed and NAD; Negative for unkempt, cachectic, contractures, cyanotic, diaphoretic or pallor Nutritional Appearance: obese; Negative for cachectic HEENT Reports moist mucous membranes Negative for trauma or tenderness Eyes PERRL and EOMs intact bilaterally General Eye ED: Negative for pale conjunctiva or scleral icterus Neck no lymphadenopathy, supple and no JVD General: Negative for tenderness Chest Wall inspection of chest normal and palpation of chest normal Resp normal respiratory effort and clear to auscultation bilaterally Auscultation: Negative for rales, rhonchi, wheezes or diminished lung sounds Cardio regular rate, regular rhythm, S1 normal heart sound, S2 normal heart sound and no murmurs GI normal to inspection, nondistended, normoactive bowel sounds, non-tender, non-distended and no masses Auscultation: normoactive bowel sounds Palpation: soft; Negative for tender, guarding, mass or rebound tenderness present Back/Spine no CVA tenderness General Back: Negative for CVA tenderness Cervical Spine: Negative for cervical spine tenderness Thoracic Spine / Upper Back: Negative for thoracic spinal tenderness or paraspinal muscle tenderness Lumbar Spine / Lower Back: Negative for lumbar spinal tenderness Extremity Negative for normal to inspection Extremity Narrative: Bilateral lower extremity edema. Equal symmetrical. Calves nontender. No cords. No cellulitis. Normal dorsi plantarflexion. Normal touch sensation. General Extremety ED: Yes edema; Negative for tenderness General Extremity: edema Neuro oriented x3 and CN's II-XII intact bilaterally Sensorium / Orientation: alert; Negative for orientation impaired, lethargic or stuporous Motor Exam: strength 5/5 throughout Psych mental status grossly normal Appearance: Negative for unkempt Attitude: No agitated Mood & Affect: Negative for depressed, anxious or tearful Skin no rashes or lesions noted and no wounds General Skin Exam: Negative for jaundice or pallor Lesions: No lesion noted Rashes: No rashes noted Trauma: Negative for abrasion Wounds: Negative for wounds noted MDM MDM MDM Narrative Medical decision making narrative: 24-year-old female bilateral lower extremity edema which is reportedly new. They have changed her from Mirena to control pills. Her OB wanted her to be evaluated to rule out DVT. Ultrasound and labs are being obtained. Repeat exam at 10:29 PM unchanged. We discussed all of her test results. She will be placed on Lasix 20 mg a day for the next 3 days. Elevate her legs. Follow-up as needed. History & Record Review Discussion w/independent historian: Patient Additional record(s) reviewed:: Prior inpatient record, Prior outpatient record, Prior ED visit and Prior labs Lab Data Attestation: I reviewed the patient's lab results. Lab results narrative: CBC shows normal white count 10. H&H 13 and 42. Platelets 279. Chemistries show a gap at 9. BUN is 7 creatinine 0.6. Glucose 98. Liver enzymes unremarkable except for alk phos of 120. test negative. Ultrasound of bilateral lower extremity shows no DVT per the tool technician. Chest x-ray negative. Labs: Laboratory Results - last 24 hr 01/19/25 21:21 WBC 10.1 RBC 4.89 Hgb 13.5 Hct 42.2 MCV 86.3 MCH 27.6 MCHC 32.0 RDW Std Deviation 42.8 RDW Coeff of Robert 13.6 Plt Count 279 MPV 10.6 Immature Gran % (Auto) 0.300 Neut % (Auto) 57.6 Lymph % (Auto) 31.7 [place] % (Auto) 6.0 Eos % (Auto) 3.6 Baso % (Auto) 0.8 Absolute Neuts (auto) 5.8 Absolute Lymphs (auto) 3.20 Nucleated RBC % 0 Sodium 136 Potassium 3.9 Chloride 98 Carbon Dioxide 27.9 Anion Gap 9 BUN 7 Creatinine 0.63 L Estim Creat Clear Calc 190.49 Est GFR (MDRD) Non-Af 129 BUN/Creatinine Ratio 11.5 Glucose 90 Calcium 9.5 Total Bilirubin < 0.15 AST 15 ALT 11 Alkaline Phosphatase 120 H Total Protein 7.2 Albumin 3.9 Globulin 3.3 Albumin/Globulin Ratio 1.2 Serum , Qual NEGATIVE Radiography Chest X-Ray - ED: 2 View, Read by ED Physician, Normal, Heart, Lungs, Mediastinum and No Acute Disease Diagnostic Testing: Clinical Impression(s) from Imaging Studies Venous Duplex 01/19/25 21:23 IMPRESSION: No evidence of deep vein thrombosis. Reading Location: [facility] Chest X-Ray 01/19/25 21:24 IMPRESSION: No acute airspace abnormality. Reading Location: [facility] Chest x-ray, 2 views, AP and lateral, interpreted by self and the radiologist shows no acute abnormality. Normal cardiac silhouette. No pulmonary edema. No effusions. Rhythm Strip Rhythm Strip: Sinus Rhythm Rate: 82 Ectopy: None EKG Initial EKG: Attestation: I personally reviewed and interpreted this EKG as follows: Interpretation: Sinus Rhythm and No Acute Injury Pattern Comments: Normal sinus rhythm rate 82 no acute signs of [place] or ischemia. No dysrhythmia. Discharge Plan Triage Chief Complaint: Edema ED Provider: Gregorio Garcia Dx/Rx/DC Orders Clinical Impression: Bilateral edema of lower extremity Instructions: ED Peripheral Edema, Bilateral Prescriptions: New furosemide [Lasix] 20 mg tablet 20 mg PO DAILY Qty: 3 0RF No Action ondansetron 4 mg tablet,disintegrating 4 mg PO Q8H PRN PRN (Reason: Nausea) Qty: 10 0RF benzonatate 200 mg capsule 200 mg PO TID PRN (Reason: cough) Qty: 14 0RF Primary Care Provider: Care Physician,No Primary Referrals: Pascual Walsh MD [Med Staff - Cash Register Balancer] - 1 Week if not improving Care Physician,No Primary [Primary Care Provider] - Activity Restrictions/Additional Instructions: Elevate your legs to decrease the swelling. The medication Lasix take 1 pill in the morning the next 3 days. That should make you urinate a lot. Should help decrease the fluid retention. If you feel lightheaded or dizzy make sure you check your blood pressure because it can drop your blood pressure. Follow-up with local primary care physician to ensure this is improving. Print Language: Montenegrin Disposition Disposition: Home, Self Care
--- NOTE | 2025-01-19 21:23 | US_ITS ---
PROCEDURE: VENOUS DUPLEX IMAG/ARIE EXTREM REASON FOR EXAM: Swelling TECHNIQUE: Ultrasound imaging of bilateral lower extremities. COMPARISON: None. FINDINGS: Patent and compressible bilateral lower extremity deep veins. US/Venous Duplex Imag/Arie Extrem IMPRESSION: No evidence of deep vein thrombosis. Reading Location: [facility]
--- NOTE | 2025-01-19 21:24 | RAD_ITS ---
PROCEDURE: Chest radiographs REASON FOR EXAM: Lower extremity edema, shortness of breath TECHNIQUE: Frontal and lateral views of the chest. COMPARISON: None. FINDINGS: Cardiomediastinal silhouette is within normal limits. Lungs are clear. No sizable pneumothorax. RAD/Chest PA and Lateral IMPRESSION: No acute airspace abnormality. Reading Location: [facility]
[2025-01-19 21:44] LABS: Absolute Neutrophil Count 5.8 X10^3/uL (2.0-7.7); Basophil# 0.08 X10^3/uL; Basophil% 0.8 % (0-1); Eosinophil# 0.36 X10^3/uL; Eosinophils% 3.6 % (0-5); Hematocrit 42.2 % (37-47); Hemoglobin 13.5 g/dL (12.0-15.0); Lymphocyte % 31.7 % (19-41); Mean Corpuscular Hgb 27.6 pg (27.0-32.0); Mean Corpuscular Volume 86.3 fL (81-99); Mean Platelet Vol. 10.6 fl (6.2-12.0); Monocyte# 0.61 X10^3/uL; NRBC Flagged by Analyzer 0 % (0-5); Neutrophil # 5.81 X10^3/uL (2.7-7.7); Neutrophil % 57.6 % (47-70); Platelet Count 279 K/mm3 (150-450); RBC Distribution Width CV 13.6 % (11.6-14.6); RBC Distribution Width SD 42.8 fl (35.1-43.9); Red Blood Count 4.89 M/mm3 (4.2-5.4); White Blood Count 10.1 K/mm3 (4.4-11.0)
[2025-01-19 21:53] LABS: Internal QC Validated? YES +Cl - CLEAR BKGD
[2025-01-19 21:54] LABS: Pregnancy, Serum, hCG Quali. NEGATIVE Negative
[2025-01-19 22:05] VITALS: BP 112/89; PULSE 78; RESP 16; O2SAT 98
[2025-01-19 22:23] LABS: ALB/GLOB Ratio 1.2 RATIO (0.9-2.4); AST(SGOT) 15 U/L (<=31); Alanine Aminotransfer ALT/SGPT 11 U/L (<=34); Albumin, Serum 3.9 g/dL (3.5-5.0); Alkaline Phosphatase 120 U/L (35-104); Anion Gap 9 (5-15); BUN 7 mg/dL (4-19); BUN/Creat Ratio 11.5 RATIO (10-20); Calcium,Total 9.5 mg/dL (7.6-11.0); Carbon Dioxide 27.9 mmol/L (21.0-32.0); Chloride 98 mmol/L (98-108); Creatinine, Serum 0.63 mg/dL (0.70-1.20); EST Glomerular Filtration Rate 129 (>60); Estimated Creatinine Clearance 190.49 ml/min (50-250); Globulin 3.3 g/dL (2.2-4.2); Glucose 90 mg/dL (70-99); Potassium 3.9 mmol/L (3.3-5.1); Protein, Total 7.2 g/dL (5.9-8.4); Sodium Level 136 mmol/L (133-145); Total Bilirubin < 0.15 mg/dL (0.00-1.30)
== END 2025-01-19 22:39 | disposition home or self-care (01) ==
PROVIDERS: Emergency Provider Emergency Medicine; Visit Provider Emergency Medicine
DX: R60.0 Localized edema (principal); F31.9 Bipolar disorder, unspecified; Z90.49 Acquired absence of other specified parts of digestive tract; F17.290 Nicotine dependence, other tobacco product, uncomplicated
CPT/HCPCS: 71046; 80053; 84703; 85025; 93005; 93970; 99283; A4216